=== PATIENT | male | born 1935 | race Caucasian/White ===

== ENCOUNTER 2017-02-08 11:10 | Inpatient (IN) | payer BC, MEDICARE ==
[2017-02-08] MEDS ORDERED: ACETAMINOPHEN TAB 500 MG TAB PO STA (11:28)
[2017-02-08] MEDS ORDERED: IBUPROFEN 800 MG TAB PO STA (11:28)
[2017-02-08] MEDS ORDERED: SODIUM CHLORIDE 0.9% 1,000 ML IV STA (11:28)
[2017-02-08] MEDS ORDERED: SODIUM CHLORIDE 0.9% 500 ML IV STA (11:28)
[2017-02-08] MEDS ORDERED: IPRATROPIUM-ALBUTEROL 3 ML NEB INHALATION STA (11:28)
[2017-02-08] MEDS ORDERED: LEVOFLOXACIN 750MG-D5W PMX 750 MG in DEXTROSE/WATER 1 150ML.BAG IVPB STA (11:28)
[2017-02-08] MEDS ORDERED: ALBUTEROL NEBULIZED 2.5 MG/3 ML INHALATION STA (11:37)
[2017-02-08] MEDS ORDERED: IPRATROPIUM 0.5 MG/2.5 ML NEBU INHALATION STA (11:37)
[2017-02-08 12:36] LABS: Basophils % (A) 0 %; CH 32.3; Eosinophils % (A) 0 %; HCT 43.4 % (39.0-53.0); HDW 2.48; HGB 15.5 gm/dL (13.0-17.5); Large Platelets Flag Moderate; Luc # (Auto) 0.16; Luc % (Auto) 2; Lymphocytes # (A) 0.6 k/uL (1.0-4.8); Lymphocytes % (A) 7 %; MCHC 35.6 g/dL (31.0-37.0); MCV 92.6 fL (80.0-100.0); Mean Platelet Volume 10.8; Monocytes # (A) 0.7 k/uL (0-1.0); Monocytes % (A) 8 %; Neutrophils # (A) 7.1 k/uL (1.3-7.7); Neutrophils % (A) 83 %; RBC 4.69 m/uL (4.30-5.90); RDW 13.2 % (11.5-15.5); WBC 8.6 k/uL (3.8-10.6)
[2017-02-08 12:38] LABS: ALT 45 U/L (21-72); AST 44 U/L (17-59); Alkaline Phosphatase 73 U/L (38-126); Anion Gap 11 mmol/L; Blood Urea Nitrogen 19 mg/dL (9-20); Calcium 8.8 mg/dL (8.4-10.2); Carbon Dioxide 27 mmol/L (22-30); Chloride 96 mmol/L (98-107); Glucose 149 mg/dL (74-99); INR 1.3 (<1.2); Magnesium 1.3 mg/dL (1.6-2.3); Non-African American GFR(MDRD) >60 (>60 ml/min/1.73 sqM); Partial Thromboplastin Time 25.1 sec (22.0-30.0); Potassium 3.7 mmol/L (3.5-5.1); Prothrombin Time 12.6 sec (9.0-12.0); Sodium 134 mmol/L (137-145); Total Protein 6.9 g/dL (6.3-8.2)
--- NOTE | 2017-02-08 12:56 | ED ---
General Adult HPI - General Chief complaint: Shortness of Breath Stated complaint: corey Time Seen by Provider: 02/08/17 11:28 Source: patient, RN notes reviewed, old records reviewed Mode of arrival: ambulatory Limitations: no limitations - History of Present Illness Initial comments: This is an 81-year-old male to the ER today for evaluation of shortness of breath. Patient presents with shortness of breath worse with exertion. Patient has history of recent diagnosis of pneumonia. Patient was given shot of Avelox yesterday at his primary care doctor's office and his shortness of breath, fever, sweating and chills in progress. Patient feels worse today. Yesterday, increasingly weak. No travel history no sick contacts or recent hospitalizations. - Related Data Home Medications Medication Instructions Recorded Confirmed Aspirin EC [Ecotrin Low Dose] 81 mg PO DAILY 02/08/17 02/08/17 Atenolol 100 mg PO HS 02/08/17 02/08/17 Cyanocobalamin (Vitamin B-12) 1,000 mcg PO DAILY 02/08/17 02/08/17 [Vitamin B-12] Donepezil HCl [Aricept] 5 mg PO DAILY 02/08/17 02/08/17 Fluticasone Nasal [place] [Flonase 2 spr EA NOSTRIL DAILY 02/08/17 02/08/17 Nasal [place]] Furosemide [Lasix] 20 mg PO BID 02/08/17 02/08/17 Ibuprofen [Motrin] 200 - 400 mg PO Q6HR PRN 02/08/17 02/08/17 Isosorbide Mononitrate ER [Imdur] 30 mg PO DAILY 02/08/17 02/08/17 Lisinopril-Hctz 20-25 mg 1 tab PO DAILY 02/08/17 02/08/17 [Zestoretic 20-25] Moxifloxacin HCl [Avelox] 400 mg PO DAILY 02/08/17 02/08/17 Nitroglycerin Sl Tabs [Nitrostat] 0.4 mg SUBLINGUAL Q5M PRN 02/08/17 02/08/17 Omeprazole 20 mg PO DAILY 02/08/17 02/08/17 Potassium Chloride [Klor-Con 20] 20 meq PO DAILY 02/08/17 02/08/17 Simvastatin [Zocor] 40 mg PO HS 02/08/17 02/08/17 Tamsulosin HCl [Flomax] 0.4 mg PO BID 02/08/17 02/08/17 Ubidecarenone [Co Q-10] 100 mg PO DAILY 02/08/17 02/08/17 Allergies Allergy/AdvReac Type Severity Reaction Status Date / Time No Known Allergies Allergy Verified 02/08/17 11:50 Review of Systems ROS Statement: Those systems with pertinent positive or pertinent negative responses have been documented in the HPI. ROS Other: All systems not noted in ROS Statement are negative. Past Medical History Past Medical History: Hyperlipidemia, Hypertension Additional Past Medical History / Comment(s): chronic back pain History of Any Multi-Drug Resistant Organisms: None Reported Past Surgical History: Back Surgery Past Psychological History: No Psychological Hx Reported Smoking Status: Former smoker Past Alcohol Use History: None Reported Past Drug Use History: None Reported General Exam Limitations: no limitations General appearance: alert, in no apparent distress, anxious Head exam: Present: atraumatic, normocephalic, normal inspection Eye exam: Present: normal appearance, PERRL, EOMI. Absent: scleral icterus, conjunctival injection, periorbital swelling ENT exam: Present: normal exam, mucous membranes moist Neck exam: Present: normal inspection. Absent: tenderness, meningismus, lymphadenopathy Respiratory exam: Present: normal lung sounds bilaterally, rales, accessory muscle use, decreased breath sounds. Absent: respiratory distress, wheezes, rhonchi, stridor Cardiovascular Exam: Present: regular rate, normal rhythm, normal heart sounds. Absent: systolic murmur, diastolic murmur, rubs, gallop, clicks GI/Abdominal exam: Present: soft, normal bowel sounds. Absent: distended, tenderness, guarding, rebound, rigid Extremities exam: Present: normal inspection, full ROM, normal capillary refill. Absent: tenderness, pedal edema, joint swelling, calf tenderness Back exam: Present: normal inspection Neurological exam: Present: alert, oriented X3, CN II-XII intact Psychiatric exam: Present: normal affect, normal mood Skin exam: Present: warm, dry, intact, normal color. Absent: rash Course Vital Signs 02/08/17 02/08/17 02/08/17 11:18 11:53 11:54 Temperature 101.6 F H 100.2 F H Pulse Rate 78 71 72 Respiratory 24 20 18 Rate Blood Pressure 161/90 150/92 155/95 O2 Sat by Pulse 95 97 96 Oximetry 02/08/17 02/08/17 02/08/17 12:33 12:48 13:00 Temperature Pulse Rate 75 73 74 Respiratory 18 18 Rate Blood Pressure 154/70 O2 Sat by Pulse 99 Oximetry 02/08/17 02/08/17 02/08/17 13:09 13:17 13:26 Temperature 99.0 F Pulse Rate 87 77 Respiratory 20 Rate Blood Pressure 141/67 O2 Sat by Pulse 95 Oximetry 02/08/17 02/08/17 13:49 14:18 Temperature 98.9 F Pulse Rate 89 87 Respiratory 20 18 Rate Blood Pressure 145/78 159/83 O2 Sat by Pulse 95 97 Oximetry - Reevaluation(s) Reevaluation #1: 02/08/17 14:27 Blas family regarding symptoms. Diagnosis. Questions answered Reevaluation #2: 02/08/17 14:27 Symptoms improved with fever control Reevaluation #3: 02/08/17 14:28 Patient denies any chest pain at this time EKG Findings - EKG Comments: EKG Findings:: EKG shows sinus rhythm rate of 76, pO2 76, QRS 152, QTC 570 Medical Decision Making - Medical Decision Making 81 male the ER for evaluation of fever cough congestion not feeling well. Patient appears to have suffered subacute AK. CT T negative for PE. Patient was be admitted for IV antibiotics secondary to elevated fever, and treatment of nonsteady - Lab Data Result diagrams: 02/08/17 12:07 02/08/17 12:07 Lab Results 02/08/17 02/08/17 02/08/17 Range/Units 12:07 12:07 12:07 WBC 8.6 (3.8-10.6) k/uL RBC 4.69 (4.30-5.90) m/uL Hgb 15.5 (13.0-17.5) gm/dL Hct 43.4 (39.0-53.0) % MCV 92.6 (80.0-100.0) fL MCH 33.0 (25.0-35.0) pg MCHC 35.6 (31.0-37.0) g/dL RDW 13.2 (11.5-15.5) % Plt Count 104 L (150-450) k/uL Neutrophils % 83 % Lymphocytes % 7 % Monocytes % 8 % Eosinophils % 0 % Basophils % 0 % Neutrophils # 7.1 (1.3-7.7) k/uL Lymphocytes # 0.6 L (1.0-4.8) k/uL Monocytes # 0.7 (0-1.0) k/uL Eosinophils # 0.0 (0-0.7) k/uL Basophils # 0.0 (0-0.2) k/uL PT (9.0-12.0) sec INR (<1.2) APTT (22.0-30.0) sec D-Dimer (<0.60) mg/L FEU Sodium 134 L (137-145) mmol/L Potassium 3.7 (3.5-5.1) mmol/L Chloride 96 L (98-107) mmol/L Carbon Dioxide 27 (22-30) mmol/L Anion Gap 11 mmol/L BUN 19 (9-20) mg/dL Creatinine 1.06 (0.66-1.25) mg/dL Est GFR (MDRD) Af Amer >60 (>60 ml/min/1.73 sqM) Est GFR (MDRD) Non-Af >60 (>60 ml/min/1.73 sqM) Glucose 149 H (74-99) mg/dL Plasma Lactic Acid Eulogio (0.7-2.0) mmol/L Calcium 8.8 (8.4-10.2) mg/dL Magnesium 1.3 L (1.6-2.3) mg/dL Total Bilirubin 1.0 (0.2-1.3) mg/dL AST 44 (17-59) U/L ALT 45 (21-72) U/L Alkaline Phosphatase 73 (38-126) U/L Total Creatine Kinase 158 (55-170) U/L CK-MB (CK-2) 1.8 (0.0-2.4) ng/mL CK-MB (CK-2) Rel Index 1.1 Troponin I 0.289 H* (0.000-0.034) ng/mL NT-Pro-B Natriuret Pep pg/mL Total Protein 6.9 (6.3-8.2) g/dL Albumin 3.9 (3.5-5.0) g/dL 02/08/17 02/08/1717 Range/Units 12:07 12:07 12:07 WBC (3.8-10.6) k/uL RBC (4.30-5.90) m/uL Hgb (13.0-17.5) gm/dL Hct (39.0-53.0) % MCV (80.0-100.0) fL MCH (25.0-35.0) pg MCHC (31.0-37.0) g/dL RDW (11.5-15.5) % Plt Count (150-450) k/uL Neutrophils % % Lymphocytes % % Monocytes % % Eosinophils % % Basophils % % Neutrophils # (1.3-7.7) k/uL Lymphocytes # (1.0-4.8) k/uL Monocytes # (0-1.0) k/uL Eosinophils # (0-0.7) k/uL Basophils # (0-0.2) k/uL PT 12.6 H (9.0-12.0) sec INR 1.3 H (<1.2) APTT 25.1 (22.0-30.0) sec D-Dimer 2.31 H (<0.60) mg/L FEU Sodium (137-145) mmol/L Potassium (3.5-5.1) mmol/L Chloride (98-107) mmol/L Carbon Dioxide (22-30) mmol/L Anion Gap mmol/L BUN (9-20) mg/dL Creatinine (0.66-1.25) mg/dL Est GFR (MDRD) Af Amer (>60 ml/min/1.73 sqM) Est GFR (MDRD) Non-Af (>60 ml/min/1.73 sqM) Glucose (74-99) mg/dL Plasma Lactic Acid Eulogio 1.3 (0.7-2.0) mmol/L Calcium (8.4-10.2) mg/dL Magnesium (1.6-2.3) mg/dL Total Bilirubin (0.2-1.3) mg/dL AST (17-59) U/L ALT (21-72) U/L Alkaline Phosphatase (38-126) U/L Total Creatine Kinase (55-170) U/L CK-MB (CK-2) (0.0-2.4) ng/mL CK-MB (CK-2) Rel Index Troponin I (0.000-0.034) ng/mL NT-Pro-B Natriuret Pep 10329 pg/mL Total Protein (6.3-8.2) g/dL Albumin (3.5-5.0) g/dL - Radiology Data Radiology results: report reviewed (Chest x-ray negative, CT negative for PE), image reviewed Critical Care Time Critical Care Time: Yes Total Critical Care Time: 31 Disposition Clinical Impression: Community acquired pneumonia, NSTEMI (non-ST elevated myocardial infarction), Fever Disposition: ADMITTED IP TO THIS HOSP Condition: Serious Referrals: Lily Nicole MD [Primary Care Provider] - 1-2 days
[2017-02-08 13:18] LABS: Creatine Kinase MB 1.8 ng/mL (0.0-2.4)
--- NOTE | 2017-02-08 13:26 | XR ---
EXAMINATION TYPE: XR chest 2V DATE OF EXAM: 02/08/2017 COMPARISON: Prior chest x-ray 02/24/2013 HISTORY: Difficulty breathing TECHNIQUE: Frontal and lateral views of the chest are obtained. FINDINGS: Prominent lung volumes suggest COPD. There are coronary artery calcifications, the aorta i s dense. Heart size may be accentuated by rotation. No pneumonia, pneumothorax, or pleural effusion. Pulmonary vascularity and eris are stable IMPRESSION: No acute cardiopulmonary process.
[2017-02-08] MEDS ORDERED: RX INFO: IV CONTRAST WAS GIVEN 1 EACH MISC MISCELLANE PRN (13:29)
[2017-02-08 13:40] LABS: Troponin I 0.289 ng/mL (0.000-0.034)
--- NOTE | 2017-02-08 14:19 | CT ---
EXAMINATION TYPE: CT angio chest DATE OF EXAM: 02/08/2017 2:13 PM COMPARISON: Previous study dated 02/26/2013 HISTORY: SOB, pneumonia CT DLP: 348.0 mGycm Automated exposure control for dose reduction was used. CONTRAST: CTA scan of the thorax is performed with IV Contrast, patient injected with 100 mL of Omnipaque 350, pulmonary embolism protocol. . FINDINGS: The lungs are clear. There is no significant axillary, mediastinal or hilar adenopathy. There is no evidence of pulmonary embolus. The aortic root is mildly prominent measuring 3.8 cm. The remainder the aorta is normal in caliber. T he heart is not enlarged. There is no pleural or pericardial fluid. There is diverticular change within the transverse colon. The remainder of the upper abdomen is unrem arkable. There is hypertrophic spondylosis within the spine. IMPRESSION: 1. THIS EXAMINATION IS NEGATIVE FOR PULMONARY EMBOLUS. 2. MILD DILATATION OF THE AORTIC ROOT. 3. DIVERTICULAR CHANGE INVOLVING THE TRANSVERSE COLON. 4. MILD DEGENERATIVE CHANGE WITHIN THE SPINE.
[2017-02-08] MEDS ORDERED: HEPARIN SODIUM,PORCINE 5,000 UNIT/ML 1 ML VIAL IV ONE (14:23)
[2017-02-08] MEDS ORDERED: MORPHINE SULFATE 4 MG/ML SYRINGE IV PRN (14:23)
[2017-02-08] MEDS ORDERED: HEPARIN SODIUM,PORCINE 5,000 UNIT/ML 1 ML VIAL IV PRN (14:23)
[2017-02-08] MEDS ORDERED: PNEUMONIA PROTOCOL UTILIZED 1 EACH MISC PO PRN (14:23)
[2017-02-08] MEDS ORDERED: ASPIRIN 81 MG CHEW PO STA (14:23)
[2017-02-08] MEDS ORDERED: NITROGLYCERIN SL TABS 0.4 MG TAB SUBLINGUAL PRN (14:23)
[2017-02-08] MEDS ORDERED: IPRATROPIUM-ALBUTEROL 3 ML NEB INHALATION PRN (14:23)
[2017-02-08] MEDS: MAGNESIUM SULFATE-D5W PMX 1 GM in DEXTROSE/WATER 1 100ML.BAG IVPB SCH ×2 (14:29→16:30)
[2017-02-08] MEDS ORDERED: SODIUM CHLORIDE 0.9% 1,000 ML IV SCH (14:30)
[2017-02-08] MEDS: HEPARIN SODIUM,PORCINE/D5W PMX 25,000 UNIT in DEXTROSE/WATER 1 500ML.BAG IV SCH (14:58)
[2017-02-08] MEDS ORDERED: Magnesium Replacement Protocol 1 EACH MISC MISCELLANE PRN (15:48)
[2017-02-08] MEDS ORDERED: ACETAMINOPHEN TAB 325 MG TAB PO PRN (15:48)
[2017-02-08] MEDS ORDERED: ONDANSETRON 4 MG/2 ML VIAL IVP PRN (15:48)
[2017-02-08] MEDS ORDERED: Potassium Replacement Protocol 1 EACH MISC MISCELLANE PRN (15:48)
[2017-02-08] MEDS ORDERED: FUROSEMIDE 20 MG TAB PO SCH (16:00)
[2017-02-08 16:23] LABS: Appearance,Urine Clear (Clear); Bilirubin,Urine Negative (Negative); Glucose,Urine (UA) Negative (Negative); Ketones,Urine Negative (Negative); Leukocyte Esterase,Urine Negative (Negative); Nitrite,Urine Negative (Negative); Protein,Urine Trace (Negative); Specific Gravity,Urine 1.037 (1.001-1.035); UA Billing (MACRO vs. MICRO) CHEM; Urobilinogen,Urine <2.0 mg/dL (<2.0)
--- NOTE | 2017-02-08 16:27 | P.HPIM ---
History of Present Illness H&P Date: 02/08/17 Chief Complaint: Shortness of breath This is a 81-year-old gentleman with past medical history noted below significant for essential hypertension and hyperlipidemia who presented to the emergency room with worsening shortness of breath. Patient said that his symptoms started few weeks ago and is being going on and off. He said that he get short of breath with exertion and at times he get up in the middle of the night to open the window to catch his breath. He denies any chest pain. He said that he is fairly active usually and play golf was no difficulty. Yesterday he was more short of breath and he went to his primary care physician where he was evaluated and was diagnosed with pneumonia clinically without a chest x-ray. He was given a prescription for Avelox. Unfortunately patient did not improve and shortness of breath got worse so he decided to come to the emergency room for further evaluation. In the emergency room, chest x-ray showed no acute findings. Patient was noted to be hypoxic. 12-lead EKG showed right bundle branch block. No prior EKGs available for me to compare. Initial troponin was elevated. A 12-lead EKG showed no acute ischemic changes. His BNP was significantly elevated as well. Patient appeared euvolemic clinically. Computed tomography scan of the chest obtained to rule out PE given elevated d-dimer the computed tomography scan showed clear lungs with no consolidation or infiltrate. Study was negative for PE. Of note, patient was noted to have high-grade fever in the emergency room of 101.5. He was started on IV Levaquin. No obvious source of infection. UA ordered and pending. Review of Systems Review of system: 14 points review of systems were obtained and were negative except to what were mentioned in the HPI. Past Medical History Past Medical History: Hyperlipidemia, Hypertension Additional Past Medical History / Comment(s): chronic back pain History of Any Multi-Drug Resistant Organisms: None Reported Past Surgical History: Back Surgery Past Psychological History: No Psychological Hx Reported Smoking Status: Former smoker Past Alcohol Use History: None Reported Past Drug Use History: None Reported Medications and Allergies Home Medications Medication Instructions Recorded Confirmed Type Aspirin EC [Ecotrin Low Dose] 81 mg PO DAILY 02/08/17 02/08/17 History Atenolol 100 mg PO HS 02/08/17 02/08/17 History Cyanocobalamin (Vitamin B-12) 1,000 mcg PO DAILY 02/08/17 02/08/17 History [Vitamin B-12] Donepezil HCl [Aricept] 5 mg PO DAILY 02/08/17 02/08/17 History Fluticasone Nasal [place] [Flonase 2 spr EA NOSTRIL DAILY 02/08/17 02/08/17 History Nasal [place]] Furosemide [Lasix] 20 mg PO BID 02/08/17 02/08/17 History Ibuprofen [Motrin] 200 - 400 mg PO Q6HR PRN 02/08/17 02/08/17 History Isosorbide Mononitrate ER [Imdur] 30 mg PO DAILY 02/08/17 02/08/17 History Lisinopril-Hctz 20-25 mg 1 tab PO DAILY 02/08/17 02/08/17 History [Zestoretic 20-25] Moxifloxacin HCl [Avelox] 400 mg PO DAILY 02/08/17 02/08/17 History Nitroglycerin Sl Tabs [Nitrostat] 0.4 mg SUBLINGUAL Q5M PRN 02/08/17 02/08/17 History Omeprazole 20 mg PO DAILY 02/08/17 02/08/17 History Potassium Chloride [Klor-Con 20] 20 meq PO DAILY 02/08/17 02/08/17 History Simvastatin [Zocor] 40 mg PO HS 02/08/17 02/08/17 History Tamsulosin HCl [Flomax] 0.4 mg PO BID 02/08/17 02/08/17 History Ubidecarenone [Co Q-10] 100 mg PO DAILY 02/08/17 02/08/17 History Allergies Allergy/AdvReac Type Severity Reaction Status Date / Time No Known Allergies Allergy Verified 02/08/17 11:50 Physical Exam Vitals: Vital Signs Temp Pulse Resp BP Pulse Ox 02/08/17 15:49 20 02/08/17 14:59 77 18 148/78 95 02/08/17 14:18 98.9 F 87 18 159/83 97 02/08/17 13:49 89 20 145/78 95 02/08/17 13:26 99.0 F 02/08/17 13:17 77 02/08/17 13:09 87 20 141/67 95 02/08/17 13:00 74 18 154/70 99 02/08/17 12:48 73 02/08/17 12:33 75 18 02/08/17 11:54 100.2 F H 72 18 155/95 96 02/08/17 11:53 71 20 150/92 97 02/08/17 11:18 101.6 F H 78 24 161/90 95 Intake and Output 02/08/17 02/08/17 02/08/17 06:59 14:59 22:59 Other: Weight 77.111 kg Patient Weight 02/09/17 06:59 Weight 77.111 kg General: The patient is awake and alert, in no distress, and does not appear acutely ill. Eye: extra-ocular movements are intact; there is normal conjunctiva bilaterally. . Neck: The neck is supple, there is no tenderness or JVD. Cardiovascular: Normal S1-S2, no S3-S4, no murmurs. Respiratory: Lungs clear to auscultation bilaterally with mild bibasilar crackles Gastrointestinal: Abdomen is soft, nontender, nondistended, with no organomegaly. Musculoskeletal: Normal ROM, no tenderness, There is no pedal edema. Neurological: There are no obvious motor or sensory deficits. Speech is normal. Skin: Skin is warm and dry and no rashes or lesions are noted. Results CBC & Chem 7: 02/08/17 12:07 02/08/17 12:07 Labs: Abnormal Lab Results - Last 24 Hours (Table) 02/08/17 02/08/17 02/08/17 Range/Units 12:07 12:07 12:07 Plt Count 104 L (150-450) k/uL Lymphocytes # 0.6 L (1.0-4.8) k/uL PT (9.0-12.0) sec INR (<1.2) D-Dimer (<0.60) mg/L FEU Sodium 134 L (137-145) mmol/L Chloride 96 L (98-107) mmol/L Glucose 149 H (74-99) mg/dL Magnesium 1.3 L (1.6-2.3) mg/dL Troponin I 0.289 H* (0.000-0.034) ng/mL 02/08/17 Range/Units 12:07 Plt Count (150-450) k/uL Lymphocytes # (1.0-4.8) k/uL PT 12.6 H (9.0-12.0) sec INR 1.3 H (<1.2) D-Dimer 2.31 H (<0.60) mg/L FEU Sodium (137-145) mmol/L Chloride (98-107) mmol/L Glucose (74-99) mg/dL Magnesium (1.6-2.3) mg/dL Troponin I (0.000-0.034) ng/mL Assessment and Plan Plan: 1. Acute dyspnea: Exact etiology unclear. I suspect underlying heart failure given her clinical presentation and significantly elevated BNP. I would start the patient on IV Lasix 40 mg every 8 hours and monitor electrolytes and kidney function closely. Echocardiogram ordered to rule out congestive heart failure and pulmonary hypertension. 2. Systemic inflammatory response syndrome SIRS: No obvious source of infection. Patient was diagnosed with pneumonia clinically by his PCP that his computed tomography scan of the chest showed clear lungs with no evidence of infiltrate. I would continue IV Levaquin for now. Blood culture and urinalysis ordered 3. Elevated troponin: No acute ischemic changes on 12-lead EKG. patient is currently on IV heparin awaiting cardiology evaluation. My suspicion for acute coronary syndrome is low. I think that this is non-thrombotic troponin leak in setting of heart failure. We will treat with optimal medical management awaiting cardiology evaluation. 4. Acute hypoxic respiratory failure 5. Essential hypertension: Blood pressure well controlled 6. Mixed hyperlipidemia: I would check fasting lipid profile in the morning Today, I discussed with the patient and his family at bedside his current clinical condition. I answered all their questions to their satisfaction.
[2017-02-08] MEDS: FUROSEMIDE 10 MG/ML 4 ML VIAL IV SCH ×2 (17:02→23:41)
[2017-02-08 18:50] LABS: Creatine Kinase MB 2.4 ng/mL (0.0-2.4)
[2017-02-08 18:55] LABS: Troponin I 0.197 ng/mL (0.000-0.034)
[2017-02-08] MEDS: ATORVASTATIN 80 MG TAB PO SCH (20:58)
[2017-02-08] MEDS: TAMSULOSIN 0.4 MG CAP.ER.24H PO SCH (20:58)
[2017-02-08] MEDS: ATENOLOL 50 MG TAB PO SCH (20:58)
[2017-02-08] MEDS ORDERED: ATORVASTATIN 20 MG TAB PO SCH (21:00)
[2017-02-08 21:23] VITALS: BMI 26.0
[2017-02-09 01:31] LABS: Creatine Kinase MB 3.8 ng/mL (0.0-2.4); Troponin I 0.245 ng/mL (0.000-0.034)
[2017-02-09] MEDS ORDERED: NITROGLYCERIN SL TABS 0.4 MG TAB SUBLINGUAL PRN (02:30)
[2017-02-09 06:16] LABS: Basophils % (A) 0 %; CH 32.3; CHCM 34.2; Eosinophils % (A) 0 %; HCT 42.3 % (39.0-53.0); HDW 2.54; HGB 14.4 gm/dL (13.0-17.5); Large Platelets Flag Slight; Luc # (Auto) 0.19; Luc % (Auto) 3; Lymphocytes # (A) 0.6 k/uL (1.0-4.8); Lymphocytes % (A) 9 %; MCH 32.4 pg (25.0-35.0); MCHC 34.2 g/dL (31.0-37.0); MCV 94.7 fL (80.0-100.0); Mean Platelet Volume 10.2; Monocytes # (A) 0.6 k/uL (0-1.0); Monocytes % (A) 9 %; Neutrophils # (A) 5.1 k/uL (1.3-7.7); Neutrophils % (A) 79 %; RBC 4.46 m/uL (4.30-5.90); RDW 12.6 % (11.5-15.5); WBC 6.5 k/uL (3.8-10.6); WBC (Perox) 7.04
[2017-02-09 06:31] LABS: Manual Review Performed
[2017-02-09] MEDS: PANTOPRAZOLE 40 MG TABLET PO SCH (06:43)
[2017-02-09 06:51] LABS: Anion Gap 12 mmol/L; Blood Urea Nitrogen 19 mg/dL (9-20); Calcium 8.2 mg/dL (8.4-10.2); Carbon Dioxide 27 mmol/L (22-30); Chloride 98 mmol/L (98-107); Cholesterol 112 mg/dL (<200); Glucose 118 mg/dL (74-99); HDL Cholesterol 48 mg/dL (40-60); Magnesium 1.4 mg/dL (1.6-2.3); Non-African American GFR(MDRD) >60 (>60 ml/min/1.73 sqM); Potassium 3.1 mmol/L (3.5-5.1); Sodium 137 mmol/L (137-145); Triglycerides 66 mg/dL (<150)
[2017-02-09] MEDS ORDERED: Magnesium Replacement Protocol 1 EACH MISC MISCELLANE PRN (07:46)
--- NOTE | 2017-02-09 08:52 | XR ---
EXAMINATION TYPE: XR chest 2V DATE OF EXAM: 02/09/2017 COMPARISON: Prior chest x-ray 02/08/2017 HISTORY: Pneumonia TECHNIQUE: Frontal and lateral views of the chest are obtained. FINDINGS: Prominent lung volumes suggest underlying COPD. No pneumothorax or pleural effusion. Cardi ac mediastinal silhouette, pulmonary vascularity and eris are stable accounting for rotation. There a re overlying cardiac leads. Interstitium is increased. IMPRESSION: Interstitial lung disease.
[2017-02-09] MEDS ORDERED: NON-FORMULARY DRUG (Moxifloxacin Hcl [Avelox] 400 MG) PO SCH (09:00)
[2017-02-09] MEDS ORDERED: ASPIRIN 325 MG TAB PO SCH (09:00)
[2017-02-09] MEDS ORDERED: NON-FORMULARY DRUG (Ubidecarenone [Co Q-10] 100 MG) PO SCH (09:00)
[2017-02-09] MEDS ORDERED: LISINOPRIL-HCTZ 20-25 MG 1 EACH TAB PO SCH (09:00)
[2017-02-09] MEDS: MAGNESIUM SULFATE-D5W PMX 1 GM in DEXTROSE/WATER 1 100ML.BAG IVPB SCH ×3 (09:03→13:10)
[2017-02-09] MEDS: POTASSIUM CHLORIDE ER 20 MEQ TAB.ER PO SCH ×5 (09:04→15:04)
--- NOTE | 2017-02-09 10:35 | P.CRDCN ---
History of Present Illness Consult date: 02/09/17 Requesting physician: Merry Rose Consult reason: shortness of breath Chief complaint: Shortness of breath History of present illness: This is a pleasant 81-year-old gentleman with history of hypertension , hyperlipidemia, coronary artery disease by heart cath performed a few years ago, patient was told to have a 70% blockage in one of his arteries at that time and was treated medically. Apparently the patient was golfing on Monday, he states on driving home he became quite short of breath. He was seen in his primary care doctor's office that same day and was felt to have a possible bronchitis or pneumonia, he was given a shot of Avelox and discharged with prescription for antibiotics. He states he did not sleep well that night and upon wakening in the morning again became quite short of breath and for this reason came to the emergency room for further evaluation. Patient states he is quite active, and does a lot of yard work, for the past one month or so, he has to rest every 10 minutes after exerting himself because he becomes quite short of breath, after he rests the symptoms subside and he resumes his activity. He does state that on the drive [place] from [place] as well as shortness of breath he was experiencing some discomfort in his chest and upper back region. His EKG on admission here showed a normal sinus rhythm with first-degree AV block, right bundle branch block pattern and left anterior fascicular block. Nonspecific ST-T wave changes noted. Chest x-ray did not reveal any acute cardiopulmonary process. CTA of the chest was performed which was negative for pulmonary embolism, mild dilated dictation of the aortic root noted. White blood cell count normal, hemoglobin 14.4, d-dimer 2.3, potassium 3.7 on admission, 3.1 this morning. BUN 19, creatinine 1.0. Magnesium level I.3 on admission, 1.4 this morning. Troponin 0.28, 0.19, 0.24. BNP level 16,200. Blood pressure on arrival 160/90, temperature on arrival 101.6, blood pressure this morning 165/80, heart rate in the 80s, temperature 99.0. Repeat chest x- ray this morning showed interstitial lung disease. Past Medical History Past Medical History: Hyperlipidemia, Hypertension Additional Past Medical History / Comment(s): chronic back pain due to back surgery. Increasing edema of the lower extremity, pt taking lasix for it. History of Any Multi-Drug Resistant Organisms: None Reported Past Surgical History: Back Surgery Past Anesthesia/Blood Transfusion Reactions: No Reported Reaction Past Psychological History: No Psychological Hx Reported Smoking Status: Former smoker Past Alcohol Use History: None Reported Past Drug Use History: None Reported - Past Family History Mother History Unknown: Yes Father History Unknown: Yes Medications and Allergies Home Medications Medication Instructions Recorded Confirmed Type Aspirin EC [Ecotrin Low Dose] 81 mg PO DAILY 02/08/17 02/08/17 History Atenolol 100 mg PO HS 02/08/17 02/08/17 History Cyanocobalamin (Vitamin B-12) 1,000 mcg PO DAILY 02/08/17 02/08/17 History [Vitamin B-12] Donepezil HCl [Aricept] 5 mg PO DAILY 02/08/17 02/08/17 History Fluticasone Nasal [place] [Flonase 2 spr EA NOSTRIL DAILY 02/08/17 02/08/17 History Nasal [place]] Furosemide [Lasix] 20 mg PO DAILY 02/08/17 02/08/17 History Ibuprofen [Motrin] 200 - 400 mg PO Q6HR PRN 02/08/17 02/08/17 History Isosorbide Mononitrate ER [Imdur] 30 mg PO DAILY 02/08/17 02/08/17 History Lisinopril-Hctz 20-25 mg 1 tab PO DAILY 02/08/17 02/08/17 History [Zestoretic 20-25] Moxifloxacin HCl [Avelox] 400 mg PO DAILY 02/08/17 02/08/17 History Nitroglycerin Sl Tabs [Nitrostat] 0.4 mg SUBLINGUAL Q5M PRN 02/08/17 02/08/17 History Omeprazole 20 mg PO DAILY 02/08/17 02/08/17 History Potassium Chloride [Klor-Con 20] 20 meq PO DAILY 02/08/17 02/08/17 History Simvastatin [Zocor] 40 mg PO HS 02/08/17 02/08/17 History Tamsulosin HCl [Flomax] 2 cap PO HS 02/08/17 02/08/17 History Ubidecarenone [Co Q-10] 100 mg PO DAILY 02/08/17 02/08/17 History Allergies Allergy/AdvReac Type Severity Reaction Status Date / Time No Known Allergies Allergy Verified 02/08/17 11:50 Physical Exam Vitals: Vital Signs Temp Pulse Pulse Resp BP BP BP 02/09/17 09:00 99 F 83 16 165/88 02/09/17 04:00 97.3 F L 67 16 156/86 02/09/17 00:00 96.8 F L 66 18 138/87 02/08/17 18:25 97.3 F L 81 17 147/86 02/08/17 18:22 96.8 F L 82 17 164/98 02/08/17 16:29 97.7 F 82 16 113/64 02/08/17 15:49 20 02/08/17 14:59 77 18 148/78 02/08/17 14:18 98.9 F 87 18 159/83 02/08/17 13:49 89 20 145/78 02/08/17 13:26 99.0 F 02/08/17 13:17 77 02/08/17 13:09 87 20 141/67 02/08/17 13:00 74 18 154/70 02/08/17 12:48 73 02/08/17 12:33 75 18 02/08/17 11:54 100.2 F H 72 18 155/95 02/08/17 11:53 71 20 150/92 02/08/17 11:18 101.6 F H 78 24 161/90 Pulse Ox 02/09/17 09:00 93 L 02/09/17 04:00 94 L 02/09/17 00:00 94 L 02/08/17 18:25 98 02/08/17 18:22 96 02/08/17 16:29 95 02/08/17 15:49 02/08/17 14:59 95 02/08/17 14:18 97 02/08/17 13:49 95 02/08/17 13:26 02/08/17 13:17 02/08/17 13:09 95 02/08/17 13:00 99 02/08/17 12:48 02/08/17 12:33 02/08/17 11:54 96 02/08/17 11:53 97 02/08/17 11:18 95 Intake and Output 02/08/17 02/09/1702/09/17 22:59 06:59 14:59 Intake Total 620.721 0727 Output Total 200 1600 Balance -60.017 -452 Intake: Intake, IV Titration 286.543 9017 Amount Heparin Sodium,Porcine/ 139.983 148 D5w Pmx 25,000 unit In Dextrose/Water 1 500ml. bag @ 12 UNITS/KG/HR 18.5 mls/hr IV .Q24H [facility] Rx#: [id number] Sodium Chloride 0.9% 1, 1000 000 ml @ 100 mls/hr IV . Q10H [facility] Rx#:[id number] Output: Urine 200 1600 Other: Voiding Method Toilet Urinal # Voids 1 Weight 77.7 kg 74 kg PHYSICAL EXAMINATION: HEENT: Head is atraumatic, normocephalic. Pupils equal, round. Neck is supple. There is elevated jugular venous pressure. HEART EXAMINATION: Heart S1 and S2 systolic murmur is heard. CHEST EXAMINATION: Lungs reveal diminished air entry bilaterally with crackles to the bases. ABDOMEN: Soft, nontender. Bowel sounds are heard. No organomegaly noted. EXTREMITIES: 2+ peripheral pulses with no evidence of peripheral edema and no calf tenderness noted. NEUROLOGIC [patient is awake, alert and oriented -3.] . Results 02/09/17 05:57 02/09/17 05:57 Cardiac Enzymes 02/08/17 02/08/17 02/08/17 Range/Units 12:07 12:07 18:11 AST 44 (17-59) U/L CK-MB (CK-2) 1.8 2.4 (0.0-2.4) ng/mL Troponin I 0.289 H* 0.197 H* (0.000-0.034) ng/mL 02/08/17 Range/Units 23:53 AST (17-59) U/L CK-MB (CK-2) 3.8 H* (0.0-2.4) ng/mL Troponin I 0.245 H* (0.000-0.034) ng/mL Coagulation 02/08/17 02/08/17 02/09/17 Range/Units 12:07 22:05 05:57 PT 12.6 H (9.0-12.0) sec APTT 25.1 57.3 H 34.5 H (22.0-30.0) sec Lipids 02/09/17 Range/Units 05:57 Triglycerides 66 (<150) mg/dL Cholesterol 112 (<200) mg/dL HDL Cholesterol 48 (40-60) mg/dL CBC 02/08/17 02/09/17 Range/Units 12:07 05:57 WBC 8.6 6.5 (3.8-10.6) k/uL RBC 4.69 4.46 (4.30-5.90) m/uL Hgb 15.5 14.4 (13.0-17.5) gm/dL Hct 43.4 42.3 (39.0-53.0) % Plt Count 104 L 81 L (150-450) k/uL Comprehensive Metabolic Panel 02/08/17 02/09/17 Range/Units 12:07 05:57 Sodium 134 L 137 (137-145) mmol/L Potassium 3.7 3.1 L (3.5-5.1) mmol/L Chloride 96 L 98 (98-107) mmol/L Carbon Dioxide 27 27 (22-30) mmol/L BUN 19 19 (9-20) mg/dL Creatinine 1.06 1.00 (0.66-1.25) mg/dL Glucose 149 H 118 H (74-99) mg/dL Calcium 8.8 8.2 L (8.4-10.2) mg/dL AST 44 (17-59) U/L ALT 45 (21-72) U/L Alkaline Phosphatase 73 (38-126) U/L Total Protein 6.9 (6.3-8.2) g/dL Albumin 3.9 (3.5-5.0) g/dL Current Medications Generic Name Dose Route Start Last Admin Trade Name Freq PRN Reason Stop Dose Admin Acetaminophen 650 mg 02/08/17 15:48 Tylenol Tab PO Q6HR PRN Fever and/ or Pain Albuterol/Ipratropium 3 ml 02/08/17 14:23 Duoneb 0.5 Mg-3 Mg/3 Ml Soln INHALATION RT-Q4H PRN shortness of breath Aspirin 325 mg 02/09/17 09:00 Aspirin PO DAILY [facility] Atenolol 100 mg 02/08/17 21:00 02/08/17 20:58 Tenormin PO 100 mg HS [facility] Administration Atorvastatin Calcium 80 mg 02/08/17 21:00 02/08/17 20:58 Lipitor PO 80 mg HS [facility] Administration Cyanocobalamin 1,000 mcg 02/09/17 09:00 Vitamin B-12 PO DAILY [facility] Donepezil HCl 5 mg 02/09/17 09:00 Aricept PO DAILY [facility] Fluticasone Propionate 2 spray 02/09/17 09:00 Flonase Nasal [place] EA NOSTRIL DAILY [facility] Furosemide 40 mg 02/08/17 16:30 02/08/17 23:41 Lasix IV 40 mg Q8HR [facility] Administration Lisinopril/HCTZ 1 each 02/09/17 09:00 Zestoretic 20-25 PO DAILY [facility] Heparin Sodium (Porcine) 0 unit 02/08/17 14:23 Heparin IV Q6HR PRN Low PTT Protocol Heparin Sodium/Dextrose 25,000 500 mls @ 18.5 mls/hr 02/08/17 14:30 02/09/17 06:32 unit/ IV Solution IV 15 units/kg/hr .Q24H [facility] 23.13 mls/hr Protocol Titration 12 UNITS/KG/HR Levofloxacin 750 mg/ IV 150 mls @ 100 mls/hr 02/09/17 12:00 Solution IVPB 02/21/17 12:01 Q24H [facility] Magnesium Sulfate/Dextrose 1 100 mls @ 100 mls/hr 02/09/17 08:00 02/09/17 09: 03 gm/ IV Solution IVPB 02/09/17 10:59 100 mls/hr Q1H [facility] Administration Isosorbide Mononitrate 30 mg 02/09/17 09:00 Imdur PO DAILY [facility] Miscellaneous Information 1 each 02/08/17 13:29 Rx Info: Iv Contrast Was Given MISCELLANE 02/10/17 13:29 DAILY PRN Per Protocol Miscellaneous Information 1 each 02/08/17 14:23 Pneumonia Protocol Utilized PO ONCE PRN Per Protocol Miscellaneous Information 1 each 02/08/17 15:48 Magnesium Per Protocol MISCELLANE DAILY PRN Per Protocol Protocol Miscellaneous Information 1 each 02/08/17 15:48 Potassium Per Protocol MISCELLANE DAILY PRN Per Protocol Protocol Miscellaneous Information 1 each 02/09/17 07:46 Magnesium Per Protocol MISCELLANE DAILY PRN Per Protocol Protocol Morphine Sulfate 4 mg 02/08/17 14:23 Morphine Sulfate (Inj) IV Q5M PRN Chest Pain Nitroglycerin 0.4 mg 02/08/17 14:23 Nitrostat SUBLINGUAL Q5M PRN Chest Pain Nitroglycerin 0.4 mg 02/09/17 02:30 Nitrostat SUBLINGUAL Q5M PRN Chest Pain Ondansetron HCl 4 mg 02/08/17 15:48 Zofran IVP Q6HR PRN Nausea And Vomiting Pantoprazole Sodium 40 mg 02/09/17 07:30 02/09/17 06:43 Protonix PO 40 mg [id number] [facility] Administration Potassium Chloride 20 meq 02/09/17 09:00 02/09/17 09:04 K-Dur 20 PO 20 meq DAILY [facility] Administration Tamsulosin HCl 0.4 mg 02/08/17 21:00 02/08/17 20:58 Flomax PO 0.4 mg BID [facility] Administration Intake and Output 02/08/17 02/09/17 02/09/17 22:59 06:59 14:59 Intake Total 537.269 3737 Output Total 200 1600 Balance -60.017 -452 Intake: Intake, IV Titration 570.003 4706 Amount Heparin Sodium,Porcine/ 139.983 148 D5w Pmx 25,000 unit In Dextrose/Water 1 500ml. bag @ 12 UNITS/KG/HR 18.5 mls/hr IV .Q24H [facility] Rx#: [id number] Sodium Chloride 0.9% 1, 1000 000 ml @ 100 mls/hr IV . Q10H [facility] Rx#:[id number] Output: Urine 200 1600 Other: Voiding Method Toilet Urinal # Voids 1 Weight 77.7 kg 74 kg 02/09/17 05:57 02/09/17 05:57 EKG Interpretations (text) EKG shows a normal sinus rhythm with first-degree AV block, right bundle branch block pattern and left anterior fascicular block. Assessment and Plan Plan: Assessment and plan #1 symptoms of exertional shortness of breath with associated chest and back discomfort, suggestive of unstable angina. Troponins 0.28, 0.19, 0.24. D- dimer elevated, no evidence of PE on CAT scan according to the patient's daughter, he did undergo cardiac catheterization a number of years ago which revealed 70% lesion in one of his arteries. Medical Therapy advised at that time. #2 possible pneumonia, evidence of temperature of 101 on admission, patient currently on IV antibiotics #3 congestive heart failure, unknown LV function at this time. Patient currently on IV Lasix. #4 hypertension #5 hyperlipidemia #6 hypomagnesemia Plan We will obtain an echocardiogram with Doppler study. Continue current dose of IV Lasix. Decrease aspirin 81 mg daily. Continue IV heparin. We will obtain records of patient's prior cardiac catheterization. Once the patient's pneumonia and heart failure clears, he will need to be evaluated for underlying coronary artery disease. Replace magnesium. Further recommendations to follow. DNP note has been reviewed, I agree with a documented findings and plan of care. Patient was seen and examined.
--- NOTE | 2017-02-09 11:23 | ECHOF ---
Referral Reason:CHF? NSTEMI MEASUREMENTS -------- HEIGHT: 172.7 cm WEIGHT: 73.9 kg BP: 156/86 RVIDd: 3.6 cm (< 3.3) IVSd: 1.2 cm (0.6 - 1.1) LVIDd: 5.4 cm (3.9 - 5.3) LVPWd: 1.4 cm (0.6 - 1.1) IVSs: 1.5 cm LVIDs: 4.4 cm LVPWs: 1.6 cm LA Diam: 4.1 cm (2.7 - 3.8) LAESV Index (A-L): 40.01 ml/m Ao Diam: 3.4 cm (2.0 - 3.7) AV Cusp: 2.0 cm (1.5 - 2.6) MV EXCURSION: 12.148 mm (> 18.000) MV EF SLOPE: 45 mm/s (70 - 150) EPSS: 1.6 cm RAP: 5.00 mmHg RVSP: 52.43 mmHg FINDINGS -------- Atrial fibrillation. This was a technically good study. The left ventricular size is normal. There is borderline concentric left ventricular hypertrophy. There is severe global hypokinesis of LV . Overall left ventricular systolic function is severely impaired with, an EF between 25 - 30 %. The right ventricle is mildly enlarged. LA is severely dilated >40 ml/m2 The right atrium is normal in size. Aortic valve is trileaflet and is mildly thickened. Mild mitral annular calcification present. Mild mitral regurgitation is present. Mild tricuspid regurgitation present. There is moderate pulmonary hypertension. The right ventricular systolic pressure, as measured by Doppler, is 52.43mmHg. Moderate pulmonic regurgitation. The aortic root size is normal. Normal inferior vena cava with normal inspiratory collapse consistent with estimated right atrial pressure of 5 mmHg. There is no pericardial effusion. CONCLUSIONS -------- 1. Atrial fibrillation. 2. Mild mitral regurgitation is present. 3. Mild tricuspid regurgitation present. 4. There is moderate pulmonary hypertension. 5. The right ventricular systolic pressure, as measured by Doppler, is 52.43mmHg. 6. Moderate pulmonic regurgitation. 7. The aortic root size is normal. 8. Normal inferior vena cava with normal inspiratory collapse consistent with estimated right atrial pressure of 5 mmHg. 9. There is no pericardial effusion. 10. This was a technically good study. 11. The left ventricular size is normal. 12. There is borderline concentric left ventricular hypertrophy. 13. There is severe global hypokinesis of LV . 14. The right ventricle is mildly enlarged. 15. LA is severely dilated >40 ml/m2 16. Aortic valve is trileaflet and is mildly thickened. 17. Mild mitral annular calcification present. TOBACCO DRYING MACHINE OPERATOR: Megan Jack RDCS
[2017-02-09] MEDS: FUROSEMIDE 10 MG/ML 4 ML VIAL IV SCH ×3 (11:30→23:11)
[2017-02-09] MEDS: CYANOCOBALAMIN 500 MCG TAB PO SCH (11:31)
[2017-02-09] MEDS: ISOSORBIDE MONONITRATE ER 30 MG TAB.ER.24H PO SCH (11:31)
[2017-02-09] MEDS: TAMSULOSIN 0.4 MG CAP.ER.24H PO SCH ×2 (11:31→20:33)
[2017-02-09] MEDS: DONEPEZIL 5 MG TAB PO SCH (11:31)
--- NOTE | 2017-02-09 12:00 | P.PN ---
Subjective Patient is doing slightly better today. Objective - Vital Signs Vital signs: Vital Signs Temp 99 F 02/09/17 09:00 Pulse 83 02/09/17 11:20 Resp 16 02/09/17 11:20 BP 142/76 02/09/17 11:20 Pulse Ox 95 02/09/17 11:20 Intake & Output 02/08/17 02/09/17 02/09/17 18:59 06:59 18:59 Intake Total 1287.983 Output Total 1800 Balance -512.017 Weight 77.7 kg 74 kg Intake: Intake, IV Titration 1287.983 Amount Heparin Sodium,Porcine/ 287.983 D5w Pmx 25,000 unit In Dextrose/Water 1 500ml. bag @ 12 UNITS/KG/HR 18.5 mls/hr IV .Q24H [facility] Rx#: [id number] Sodium Chloride 0.9% 1, 1000 000 ml @ 100 mls/hr IV . Q10H [facility] Rx#:[id number] Output: Urine 1800 Other: Voiding Method Toilet Toilet Urinal Urinal # Voids 1 - Exam General: The patient is awake and alert, in no distress Eye: there is normal conjunctiva bilaterally. Neck: The neck is supple, there is no JVD. Cardiovascular: Normal S1-S2, no S3-S4, no murmurs. Respiratory: Lungs clear to auscultation bilaterally Gastrointestinal: Abdomen is soft, nontender Musculoskeletal: There is no pedal edema. Neurological:. Speech is normal. Skin: Skin is warm and dry - Labs CBC & Chem 7: 02/09/17 05:57 02/09/17 05:57 Labs: Abnormal Lab Results - Last 24 Hours (Table) 02/08/17 02/08/17 02/08/17 Range/Units 12:07 12:07 12:07 Plt Count 104 L (150-450) k/uL Lymphocytes # 0.6 L (1.0-4.8) k/uL PT (9.0-12.0) sec INR (<1.2) APTT (22.0-30.0) sec D-Dimer (<0.60) mg/L FEU Sodium 134 L (137-145) mmol/L Potassium (3.5-5.1) mmol/L Chloride 96 L (98-107) mmol/L Glucose 149 H (74-99) mg/dL Calcium (8.4-10.2) mg/dL Magnesium 1.3 L (1.6-2.3) mg/dL CK-MB (CK-2) (0.0-2.4) ng/mL Troponin I 0.289 H* (0.000-0.034) ng/mL Ur Specific [place] (1.001-1.035) Urine Protein (Negative) 02/08/17 02/08/17 02/08/17 Range/Units 12:07 16:06 18:11 Plt Count (150-450) k/uL Lymphocytes # (1.0-4.8) k/uL PT 12.6 H (9.0-12.0) sec INR 1.3 H (<1.2) APTT (22.0-30.0) sec D-Dimer 2.31 H (<0.60) mg/L FEU Sodium (137-145) mmol/L Potassium (3.5-5.1) mmol/L Chloride (98-107) mmol/L Glucose (74-99) mg/dL Calcium (8.4-10.2) mg/dL Magnesium (1.6-2.3) mg/dL CK-MB (CK-2) (0.0-2.4) ng/mL Troponin I 0.197 H* (0.000-0.034) ng/mL Ur Specific [place] 1.037 H (1.001-1.035) Urine Protein Trace H (Negative) 02/08/17 02/08/17 02/09/17 Range/Units 22:05 23:53 05:57 Plt Count 81 L (150-450) k/uL Lymphocytes # 0.6 L (1.0-4.8) k/uL PT (9.0-12.0) sec INR (<1.2) APTT 57.3 H (22.0-30.0) sec D-Dimer (<0.60) mg/L FEU Sodium (137-145) mmol/L Potassium (3.5-5.1) mmol/L Chloride (98-107) mmol/L Glucose (74-99) mg/dL Calcium (8.4-10.2) mg/dL Magnesium (1.6-2.3) mg/dL CK-MB (CK-2) 3.8 H* (0.0-2.4) ng/mL Troponin I 0.245 H* (0.000-0.034) ng/mL Ur Specific [place] (1.001-1.035) Urine Protein (Negative) 02/09/17 02/09/17 Range/Units 05:57 05:57 Plt Count (150-450) k/uL Lymphocytes # (1.0-4.8) k/uL PT (9.0-12.0) sec INR (<1.2) APTT 34.5 H (22.0-30.0) sec D-Dimer (<0.60) mg/L FEU Sodium (137-145) mmol/L Potassium 3.1 L (3.5-5.1) mmol/L Chloride (98-107) mmol/L Glucose 118 H (74-99) mg/dL Calcium 8.2 L (8.4-10.2) mg/dL Magnesium 1.4 L (1.6-2.3) mg/dL CK-MB (CK-2) (0.0-2.4) ng/mL Troponin I (0.000-0.034) ng/mL Ur Specific [place] (1.001-1.035) Urine Protein (Negative) Assessment and Plan Plan: 1. Acute systolic heart failure exacerbation: echocardiogram showed EF of 25%. We will continue diuresis with IV Lasix 40 mg every 8 hours. Monitor lab work closely. May decrease dose to 40 mg daily tomorrow 2. Systemic inflammatory response syndrome SIRS: No obvious source of infection. Patient was diagnosed with pneumonia clinically by his PCP that his computed tomography scan of the chest showed clear lungs with no evidence of infiltrate. I recommend finishing 5 days course of Levaquin. Blood culture and urinalysis negative 3. Ischemic cardiomyopathy 4. Acute hypoxic respiratory failure 5. Essential hypertension: Blood pressure not well controlled 6. Mixed hyperlipidemia: LDL at goal. Continue home dose of statins. 7. Coronary artery disease with recent left heart catheterization several years ago. Patient will need a repeat left heart cath after finishing treatment for suspected bronchitis and his heart failure is better compensated. Today, I discussed with the patient and his family at bedside his current clinical condition. I answered all their questions to their satisfaction.
[2017-02-09] MEDS: HEPARIN SODIUM,PORCINE/D5W PMX 25,000 UNIT in DEXTROSE/WATER 1 500ML.BAG IV SCH (13:10)
[2017-02-09] MEDS: FLUTICASONE 50MCG/SPRAY NASAL 16GM EA NOSTRIL SCH (13:10)
[2017-02-09] MEDS: LEVOFLOXACIN 750MG-D5W PMX 750 MG in DEXTROSE/WATER 1 150ML.BAG IVPB SCH (13:10)
[2017-02-09] MEDS: SPIRONOLACTONE 25 MG TAB PO SCH (15:04)
[2017-02-09] MEDS ORDERED: POTASSIUM CHLORIDE ER 20 MEQ TAB.ER PO SCH (20:00)
[2017-02-09] MEDS: ATENOLOL 50 MG TAB PO SCH (20:32)
[2017-02-09] MEDS: LOSARTAN 50 MG TAB PO SCH (20:33)
[2017-02-09] MEDS: ATORVASTATIN 80 MG TAB PO SCH (20:33)
[2017-02-09] MEDS ORDERED: LORazepam 2 MG/ML SYRINGE IV PRN (22:33)
--- NOTE | 2017-02-09 23:28 | CT ---
EXAM: CT Head Without Intravenous Contrast CLINICAL HISTORY: Reason: Altered mental status TECHNIQUE: Axial computed tomography images of the head/brain without intravenous contrast. CTDI is 60.3 mGy and DLP is 1001.8 mGy-cm. This CT exam was performed using one or more of the following dose reduction techniques: automated exposure control, adjustment of the mA and/or kV according to patient size, and/or use of iterative reconstruction technique. COMPARISON: MRI brain 07/05/2016. FINDINGS: Brain: Severe white matter hypoattenuation, nonspecific and may be related to chronic microvascular ischemic change. Moderate cerebral volume loss. 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 No acute hemorrhage. Mass effect: No midline shift, herniation, or hydrocephalus. Bones/joints: Stable size of the 2.2 cm lesion in the right vertex skull. No acute fracture. Soft tissues: Unremarkable. Vasculature: Intracranial vascular calcifications. Sinuses: Mild mucosal thickening of the paranasal sinuses without air fluid level. Mastoid air cells: Unremarkable as visualized. No mastoid effusion. Orbits: Bilateral cataract extraction. IMPRESSION: 1. No acute intracranial abnormality. 2. Chronic findings, detailed above.
[2017-02-10 00:17] LABS: Appearance,Urine Clear (Clear); Bilirubin,Urine Negative (Negative); Glucose,Urine (UA) Negative (Negative); Ketones,Urine Negative (Negative); Leukocyte Esterase,Urine Negative (Negative); Nitrite,Urine Negative (Negative); Protein,Urine Negative (Negative); Specific Gravity,Urine 1.008 (1.001-1.035); UA Billing (MACRO vs. MICRO) CHEM; Urobilinogen,Urine <2.0 mg/dL (<2.0)
[2017-02-10] MEDS: PANTOPRAZOLE 40 MG TABLET PO SCH (06:24)
[2017-02-10 06:41] LABS: Aty Lym Flag Moderate; CH 32.9; CHCM 34.2; HDW 2.47; HGB 14.4 gm/dL (13.0-17.5); Large Platelets Flag Moderate; MCH 32.4 pg (25.0-35.0); MCHC 33.5 g/dL (31.0-37.0); MCV 96.7 fL (80.0-100.0); Mean Platelet Volume 11.9; RBC 4.45 m/uL (4.30-5.90); RDW 13.3 % (11.5-15.5); WBC 4.8 k/uL (3.8-10.6); WBC (Perox) 5.02
[2017-02-10 07:01] LABS: Anion Gap 11 mmol/L; Blood Urea Nitrogen 24 mg/dL (9-20); Calcium 8.7 mg/dL (8.4-10.2); Carbon Dioxide 29 mmol/L (22-30); Chloride 95 mmol/L (98-107); Glucose 139 mg/dL (74-99); Magnesium 1.7 mg/dL (1.6-2.3); Non-African American GFR(MDRD) >60 (>60 ml/min/1.73 sqM); Potassium 3.3 mmol/L (3.5-5.1); Sodium 135 mmol/L (137-145)
[2017-02-10 07:44] LABS: Add Differential Manual Differential
[2017-02-10 07:51] LABS: Manual Review Performed; Nucleated Red Blood Cells 0 /100 WBC (0-0); Total Cells Counted 200
[2017-02-10] MEDS: POTASSIUM CHLORIDE ER 20 MEQ TAB.ER PO SCH ×3 (08:14→10:11)
[2017-02-10] MEDS: CYANOCOBALAMIN 500 MCG TAB PO SCH (08:14)
[2017-02-10] MEDS: ASPIRIN 81 MG CHEW PO SCH (08:14)
[2017-02-10] MEDS: DONEPEZIL 5 MG TAB PO SCH (08:14)
[2017-02-10] MEDS: SPIRONOLACTONE 25 MG TAB PO SCH (08:14)
[2017-02-10] MEDS: TAMSULOSIN 0.4 MG CAP.ER.24H PO SCH ×2 (08:15→21:31)
[2017-02-10] MEDS: FUROSEMIDE 10 MG/ML 4 ML VIAL IV SCH ×2 (08:19→15:35)
[2017-02-10] MEDS: FLUTICASONE 50MCG/SPRAY NASAL 16GM EA NOSTRIL SCH (08:22)
[2017-02-10] MEDS: LOSARTAN 50 MG TAB PO SCH ×2 (08:24→21:31)
[2017-02-10] MEDS: MAGNESIUM SULFATE-D5W PMX 1 GM in DEXTROSE/WATER 1 100ML.BAG IVPB SCH ×2 (08:33→10:07)
--- NOTE | 2017-02-10 11:22 | P.PN ---
Subjective This is a 81-year-old gentleman with past medical history noted below significant for essential hypertension and hyperlipidemia who presented to the emergency room with worsening shortness of breath. Patient said that his symptoms started few weeks ago and is being going on and off. He said that he get short of breath with exertion and at times he get up in the middle of the night to open the window to catch his breath. He denies any chest pain. He said that he is fairly active usually and play golf was no difficulty. Yesterday he was more short of breath and he went to his primary care physician where he was evaluated and was diagnosed with pneumonia clinically without a chest x-ray. He was given a prescription for Avelox. Unfortunately patient did not improve and shortness of breath got worse so he decided to come to the emergency room for further evaluation. In the emergency room, chest x-ray showed no acute findings. Patient was noted to be hypoxic. 12-lead EKG showed right bundle branch block. No prior EKGs available for me to compare. Initial troponin was elevated. A 12-lead EKG showed no acute ischemic changes. His BNP was significantly elevated as well. Patient appeared euvolemic clinically. Computed tomography scan of the chest obtained to rule out PE given elevated d-dimer the computed tomography scan showed clear lungs with no consolidation or infiltrate. Study was negative for PE. He also had a temp of 101.5 started on IV Levaquin for possible pneumonia. 02/10/2017 patient is currently on IV Lasix for congestive heart failure exacerbation. EF of 25%. Echo shows moderate pulmonary hypertension and severe global hypokinesis of the LV. Also an EF of 25-30%. Case doesn't discussed with cardiology these are new findings. He is currently on IV heparin. He does report that he had some chest tightness with the shortness of breath. Last night patient had some confusion he wanted to leave the hospital he did not know where he was. A computed tomography scan of the brain was ordered and is negative. Patient is currently awake and alert and orientated to 3 answering questions appropriately. Patient denies any chest pain or shortness of breath. Denies any nausea or vomiting. Reports having bowel movements. Denies any difficulty urinating. Reports that shortness of breaths improvement Objective - Vital Signs Vital signs: Vital Signs Temp 98.5 F 02/10/17 08:00 Pulse 63 02/10/17 08:00 Resp 20 02/10/17 08:00 BP 146/82 02/10/17 08:00 Pulse Ox 96 02/10/17 08:00 Intake & Output 02/09/17 02/10/17 02/10/17 18:59 06:59 18:59 Intake Total 153.429 616.386 Output Total 525 Balance 153.429 91.386 Weight 74.1 kg Intake: Intake, IV Titration 153.429 436.386 Amount Heparin Sodium,Porcine/ 153.429 436.386 D5w Pmx 25,000 unit In Dextrose/Water 1 500ml. bag @ 12 UNITS/KG/HR 18.5 mls/hr IV .Q24H [facility] Rx#: [id number] Oral 0 180 Output: Urine 525 Other: Voiding Method Toilet Toilet Toilet Urinal Urinal # Voids 4 2 - Exam Head normocephalic Neck supple Lungs clear to auscultation bilaterally no wheezing or crackles Heart regular rate and rhythm S1-S2, no rub or gallop Abdomen is soft nontender nondistended positive bowel sounds no hepatosplenomegaly Extremities no edema Neuro alert and orientated to 3 - Labs CBC & Chem 7: 02/10/17 05:43 02/10/17 05:43 Labs: Abnormal Lab Results - Last 24 Hours (Table) 02/09/17 02/09/17 02/10/17 Range/Units 12:11 12:11 05:43 Plt Count 94 L (150-450) k/uL APTT 49.8 H (22.0-30.0) sec Sodium (137-145) mmol/L Potassium 3.2 L (3.5-5.1) mmol/L Chloride (98-107) mmol/L BUN (9-20) mg/dL Glucose (74-99) mg/dL 02/10/17 02/10/17 Range/Units 05:43 05:43 Plt Count (150-450) k/uL APTT 78.3 H (22.0-30.0) sec Sodium 135 L (137-145) mmol/L Potassium 3.3 L (3.5-5.1) mmol/L Chloride 95 L (98-107) mmol/L BUN 24 H (9-20) mg/dL Glucose 139 H (74-99) mg/dL Microbiology - Last 24 Hours (Table) 02/09/17 20:00 Urine Culture - Preliminary Urine,Voided 02/09/17 19:39 Gram Stain - Preliminary Sputum 02/08/17 12:07 Blood Culture - Preliminary Blood No Growth after 24 hours Assessment and Plan Plan: 1. Acute systolic heart failure exacerbation: echocardiogram showed EF of 25%. Currently on Lasix 40 IV every 8 hours 2. Systemic inflammatory response syndrome SIRS: Possible secondary to bronchitis. Patient was diagnosed with pneumonia clinically by his PCP that his computed tomography scan of the chest showed clear lungs with no evidence of infiltrate. I recommend finishing 5 days course of Levaquin. Blood culture and urinalysis negative. Sputum culture pending 3. Ischemic cardiomyopathy 4. Acute hypoxic respiratory failure 5. Essential hypertension: Blood pressure not well controlled 6. Mixed hyperlipidemia: LDL at goal. Continue home dose of statins. 7. Coronary artery disease with left heart catheterization several years ago. Patient will need a repeat left heart cath after finishing treatment for suspected bronchitis and his heart failure is better compensated. 8. hypomagnesium and hypokalemia. Patient receiving supplements. Repeat levels in a.m. 9. Shortness of breath with chest tightness and elevated troponins. Likely suggestive of unstable angina. Case discussed with cardiology. They're recommending heart catheterization when patient's heart failure and bronchitis has improved. Continue the IV heparin. 10. Consult physical therapy 11. Confusion during the evening may be secondary to patient's dementia as well as hospital delirium. Computed tomography scan of the brain negative. He is currently alert and orientated to 3 DVT prophylaxis IV heparin I performed an examination of the patient and discussed their management with the physician Sole Inker. I have reviewed the Physician Sole Inker's notes and agree with the documented findings and plan of care
[2017-02-10] MEDS: LEVOFLOXACIN 750MG-D5W PMX 750 MG in DEXTROSE/WATER 1 150ML.BAG IVPB SCH (11:54)
[2017-02-10] MEDS: HEPARIN SODIUM,PORCINE/D5W PMX 25,000 UNIT in DEXTROSE/WATER 1 500ML.BAG IV SCH (11:55)
[2017-02-10] MEDS: ISOSORBIDE MONONITRATE ER 30 MG TAB.ER.24H PO SCH (11:55)
[2017-02-10] MEDS ORDERED: POTASSIUM CHLORIDE ER 20 MEQ TAB.ER PO SCH (15:00)
--- NOTE | 2017-02-10 15:16 | P.PN ---
Subjective This is a pleasant 81-year-old gentleman with history of hypertension , hyperlipidemia, coronary artery disease by heart cath performed a few years ago, patient was told to have a 70% blockage in one of his arteries at that time and was treated medically. Apparently the patient was golfing on Monday, he states on driving home he became quite short of breath. He was seen in his primary care doctor's office that same day and was felt to have a possible bronchitis or pneumonia, he was given a shot of Avelox and discharged with prescription for antibiotics. He states he did not sleep well that night and upon wakening in the morning again became quite short of breath and for this reason came to the emergency room for further evaluation. Patient states he is quite active, and does a lot of yard work, for the past one month or so, he has to rest every 10 minutes after exerting himself because he becomes quite short of breath, after he rests the symptoms subside and he resumes his activity. He does state that on the drive home from the [place] as well as shortness of breath he was experiencing some discomfort in his chest and upper back region. His EKG on admission here showed a normal sinus rhythm with first-degree AV block, right bundle branch block pattern and left anterior fascicular block. Nonspecific ST-T wave changes noted. Chest x-ray did not reveal any acute cardiopulmonary process. CTA of the chest was performed which was negative for pulmonary embolism, mild dilated dictation of the aortic root noted. White blood cell count normal, hemoglobin 14.4, d-dimer 2.3, potassium 3.7 on admission, 3.1 this morning. BUN 19, creatinine 1.0. Magnesium level I.3 on admission, 1.4 this morning. Troponin 0.28, 0.19, 0.24. BNP level 16,200. Blood pressure on arrival 160/90, temperature on arrival 101.6, blood pressure this morning 165/80, heart rate in the 80s, temperature 99.0. Repeat chest x- ray this morning showed interstitial lung disease. 02/10/2017 Echocardiogram with Doppler study was performed which revealed an ejection fraction of 25-30%. Patient had an episode of confusion through the night last night. He does have some history of dementia for which he takes Aricept. CAT scan of the brain was performed which did not reveal any acute intracranial abnormality. Diuresing well on IV Lasix. Creatinine 1.1, potassium 3.8 magnesium 1.7 Objective - Vital Signs Vital signs: Vital Signs Temp 97.4 F L 02/10/17 11:49 Pulse 57 L 02/10/17 11:49 Resp 20 02/10/17 11:49 BP 141/86 02/10/17 11:49 Pulse Ox 94 L 02/10/17 11:49 Intake & Output 02/09/17 02/10/17 02/10/17 18:59 06:59 18:59 Intake Total 153.429 860.000 Output Total 1475 Balance 153.429 -615.000 Weight 74.1 kg Intake: Intake, IV Titration 153.429 500.000 Amount Heparin Sodium,Porcine/ 153.429 500.000 D5w Pmx 25,000 unit In Dextrose/Water 1 500ml. bag @ 12 UNITS/KG/HR 18.5 mls/hr IV .Q24H [facility] Rx#: [id number] Oral 0 360 Output: Urine 1475 Other: Voiding Method Toilet Toilet Toilet Urinal Urinal # Voids 4 2 - Exam PHYSICAL EXAMINATION: HEENT: Head is atraumatic, normocephalic. Pupils equal, round. Neck is supple. There is elevated jugular venous pressure. HEART EXAMINATION: Heart S1 and S2 systolic murmur is heard. CHEST EXAMINATION: Lungs reveal diminished air entry bilaterally with crackles to the bases. ABDOMEN: Soft, nontender. Bowel sounds are heard. No organomegaly noted. EXTREMITIES: 2+ peripheral pulses with no evidence of peripheral edema and no calf tenderness noted. NEUROLOGIC [patient is awake, alert and oriented -3.] . - Labs CBC & Chem 7: 02/10/17 05:43 02/10/17 13:05 Labs: Abnormal Lab Results - Last 24 Hours (Table) 02/10/17 02/10/17 02/10/17 Range/Units 05:43 05:43 05:43 Plt Count 94 L (150-450) k/uL APTT 78.3 H (22.0-30.0) sec Sodium 135 L (137-145) mmol/L Potassium 3.3 L (3.5-5.1) mmol/L Chloride 95 L (98-107) mmol/L BUN 24 H (9-20) mg/dL Glucose 139 H (74-99) mg/dL 02/10/17 Range/Units 13:05 Plt Count (150-450) k/uL APTT 63.8 H (22.0-30.0) sec Sodium (137-145) mmol/L Potassium (3.5-5.1) mmol/L Chloride (98-107) mmol/L BUN (9-20) mg/dL Glucose (74-99) mg/dL Microbiology - Last 24 Hours (Table) 02/08/17 12:07 Blood Culture - Preliminary Blood No Growth after 48 hours 02/09/17 20:00 Urine Culture - Preliminary Urine,Voided 02/09/17 19:39 Gram Stain - Preliminary Sputum Assessment and Plan Plan: Assessment and plan #1 symptoms of exertional shortness of breath with associated chest and back discomfort, suggestive of unstable angina. Troponins 0.28, 0.19, 0.24. D- dimer elevated, no evidence of PE on CAT scan according to the patient's daughter, he did undergo cardiac catheterization a number of years ago which revealed 70% lesion in one of his arteries. Medical Therapy advised at that time. #2 possible pneumonia, evidence of temperature of 101 on admission, patient currently on IV antibiotics #3 congestive heart failure, unknown LV function at this time. Patient currently on IV Lasix. #4 hypertension #5 hyperlipidemia #6 hypomagnesemia Plan We will obtain an echocardiogram with Doppler study. Continue current dose of IV Lasix. Check lytes BUN and creatinine in the morning. Once the patient is stable from a heart failure and pneumonia perspective he may be able to be discharged home and an outpatient cardiac catheterization will be performed. DNP note has been reviewed, I agree with a documented findings and plan of care. Patient was seen and examined.
[2017-02-10] MEDS: ATORVASTATIN 80 MG TAB PO SCH (21:31)
[2017-02-10] MEDS: ATENOLOL 50 MG TAB PO SCH (21:31)
[2017-02-10 21:53] VITALS: RESP 18
[2017-02-11] MEDS: FUROSEMIDE 10 MG/ML 4 ML VIAL IV SCH ×2 (00:23→09:25)
[2017-02-11 06:22] LABS: Aty Lym Flag Moderate; CH 32.6; CHCM 34.3; HCT 47.9 % (39.0-53.0); HDW 2.52; HGB 16.2 gm/dL (13.0-17.5); Large Platelets Flag Moderate; MCH 32.3 pg (25.0-35.0); MCHC 33.9 g/dL (31.0-37.0); MCV 95.3 fL (80.0-100.0); RBC 5.02 m/uL (4.30-5.90); RDW 12.5 % (11.5-15.5); WBC 6.2 k/uL (3.8-10.6); WBC (Perox) 6.41
[2017-02-11 06:39] LABS: Anion Gap 15 mmol/L; Blood Urea Nitrogen 26 mg/dL (9-20); Calcium 9.7 mg/dL (8.4-10.2); Carbon Dioxide 28 mmol/L (22-30); Chloride 92 mmol/L (98-107); Glucose 127 mg/dL (74-99); Magnesium 1.5 mg/dL (1.6-2.3); Non-African American GFR(MDRD) 56 (>60 ml/min/1.73 sqM); Sodium 135 mmol/L (137-145)
[2017-02-11 06:47] LABS: Add Differential Manual Differential
[2017-02-11] MEDS: PANTOPRAZOLE 40 MG TABLET PO SCH (06:53)
[2017-02-11 07:14] LABS: Nucleated Red Blood Cells 0 /100 WBC (0-0); Total Cells Counted 100
[2017-02-11 07:16] LABS: Manual Review Performed
[2017-02-11] MEDS: CYANOCOBALAMIN 500 MCG TAB PO SCH (09:25)
[2017-02-11] MEDS: ISOSORBIDE MONONITRATE ER 30 MG TAB.ER.24H PO SCH (09:25)
[2017-02-11] MEDS: FLUTICASONE 50MCG/SPRAY NASAL 16GM EA NOSTRIL SCH (09:25)
[2017-02-11] MEDS: SPIRONOLACTONE 25 MG TAB PO SCH (09:25)
[2017-02-11] MEDS: LOSARTAN 50 MG TAB PO SCH (09:26)
[2017-02-11] MEDS: TAMSULOSIN 0.4 MG CAP.ER.24H PO SCH (09:26)
[2017-02-11] MEDS: DONEPEZIL 5 MG TAB PO SCH (09:26)
[2017-02-11] MEDS: ASPIRIN 81 MG CHEW PO SCH (09:26)
[2017-02-11] MEDS: POTASSIUM CHLORIDE ER 20 MEQ TAB.ER PO SCH (09:26)
--- NOTE | 2017-02-11 11:48 | P.PN ---
Subjective This is a pleasant 81-year-old gentleman with history of hypertension , hyperlipidemia, coronary artery disease by heart cath performed a few years ago, patient was told to have a 70% blockage in one of his arteries at that time and was treated medically. Apparently the patient was golfing on Monday, he states on driving home he became quite short of breath. He was seen in his primary care doctor's office that same day and was felt to have a possible bronchitis or pneumonia, he was given a shot of Avelox and discharged with prescription for antibiotics. He states he did not sleep well that night and upon wakening in the morning again became quite short of breath and for this reason came to the emergency room for further evaluation. Patient states he is quite active, and does a lot of yard work, for the past one month or so, he has to rest every 10 minutes after exerting himself because he becomes quite short of breath, after he rests the symptoms subside and he resumes his activity. He does state that on the drive home from the [place] as well as shortness of breath he was experiencing some discomfort in his chest and upper back region. His EKG on admission here showed a normal sinus rhythm with first-degree AV block, right bundle branch block pattern and left anterior fascicular block. Nonspecific ST-T wave changes noted. Chest x-ray did not reveal any acute cardiopulmonary process. CTA of the chest was performed which was negative for pulmonary embolism, mild dilated dictation of the aortic root noted. White blood cell count normal, hemoglobin 14.4, d-dimer 2.3, potassium 3.7 on admission, 3.1 this morning. BUN 19, creatinine 1.0. Magnesium level I.3 on admission, 1.4 this morning. Troponin 0.28, 0.19, 0.24. BNP level 16,200. Blood pressure on arrival 160/90, temperature on arrival 101.6, blood pressure this morning 165/80, heart rate in the 80s, temperature 99.0. Repeat chest x- ray showed interstitial lung disease. 02/10/2017 Echocardiogram with Doppler study was performed which revealed an ejection fraction of 25-30%. Patient had an episode of confusion through the night last night. He does have some history of dementia for which he takes Aricept. CAT scan of the brain was performed which did not reveal any acute intracranial abnormality. Diuresing well on IV Lasix. Creatinine 1.1, potassium 3.8 magnesium 1.7 02/11/2017 Patient has diuresed well on IV Lasix with a weight loss of approximately 2 kg since yesterday. BUN and creatinine are slightly elevated at 26 and 1.25. Magnesium is 1.5. Patient again had an episode of confusion last night and early this morning likely secondary to underlying dementia. Objective - Vital Signs Vital signs: Vital Signs Temp 97.5 F L 02/11/17 08:00 Pulse 59 L 02/11/17 08:00 Resp 18 02/11/17 08:00 BP 161/70 02/11/17 08:00 Pulse Ox 92 L 02/11/17 08:09 Intake & Output 02/10/17 02/11/17 02/11/17 18:59 06:59 18:59 Intake Total 1031.476 300 Output Total 1575 975 Balance -543.524 -975 300 Weight 72.4 kg Intake: Intake, IV Titration 571.476 Amount Heparin Sodium,Porcine/ 571.476 D5w Pmx 25,000 unit In Dextrose/Water 1 500ml. bag @ 12 UNITS/KG/HR 18.5 mls/hr IV .Q24H [facility] Rx#: [id number] Oral 460 300 Output: Urine 1575 975 Other: Voiding Method Toilet Toilet Toilet Urinal - Exam PHYSICAL EXAMINATION: HEENT: Head is atraumatic, normocephalic. Pupils equal, round. Neck is supple. There is no elevated jugular venous pressure. HEART EXAMINATION: Heart sounds regular, S1 and S2 normal with a systolic murmur. CHEST EXAMINATION: Lungs mejia diminished air entry bilaterally. No chest wall tenderness is noted on palpation or with deep breathing. ABDOMEN: Soft, nontender. Bowel sounds are heard. No organomegaly noted. EXTREMITIES: 2+ peripheral pulses with no evidence of peripheral edema and no calf tenderness noted. NEUROLOGIC patient is awake, alert and oriented x3 with confusion at times. . - Labs CBC & Chem 7: 02/11/17 05:39 02/11/17 05:39 Labs: Abnormal Lab Results - Last 24 Hours (Table) 02/10/17 02/11/17 02/11/17 Range/Units 13:05 05:39 05:39 Plt Count 137 L (150-450) k/uL APTT 63.8 H (22.0-30.0) sec Sodium 135 L (137-145) mmol/L Chloride 92 L (98-107) mmol/L BUN 26 H (9-20) mg/dL Glucose 127 H (74-99) mg/dL Magnesium 1.5 L (1.6-2.3) mg/dL Microbiology - Last 24 Hours (Table) 02/09/17 19:39 Gram Stain - Preliminary Sputum Sputum Culture - Preliminary [place] albicans 02/09/17 20:00 Urine Culture - Final Urine,Voided 02/08/17 12:07 Blood Culture - Preliminary Blood No Growth after 48 hours Assessment and Plan Plan: Assessment and plan #1 symptoms of exertional shortness of breath with associated chest and back discomfort, suggestive of unstable angina. Troponins 0.28, 0.19, 0.24. D- dimer elevated, no evidence of PE on CAT scan according to the patient's daughter, he did undergo cardiac catheterization a number of years ago which revealed 70% lesion in one of his arteries. Medical Therapy advised at that time. #2 possible pneumonia, evidence of temperature of 101 on admission, patient currently on IV antibiotics #3 congestive heart failure, unknown LV function at this time. Patient currently on IV Lasix. #4 hypertension #5 hyperlipidemia #6 hypomagnesemia Cardiology's perspective, we will change the patient to by mouth Lasix. Replace magnesium. From our perspective, patient could likely be discharged home later today and follow-up as an outpatient which time he'll likely be scheduled for an outpatient cardiac catheterization. [employer] note has been reviewed, I agree with a documented findings and plan of care. Patient was seen and examined.
[2017-02-11] MEDS: LEVOFLOXACIN 750MG-D5W PMX 750 MG in DEXTROSE/WATER 1 150ML.BAG IVPB SCH (12:31)
[2017-02-11] MEDS ORDERED: MAGNESIUM SULFATE-D5W PMX 1 GM in DEXTROSE/WATER 1 100ML.BAG IVPB ONE (12:47)
--- NOTE | 2017-02-11 13:03 | P.DS ---
Providers Date of admission: 02/08/17 14:23 Expected date of discharge: 02/11/17 Attending physician: Merry Rose Consults: 02/08/17 14:23 Consult Physician Urgent Consulting Provider: Rachel Sorto Consult Reason/Comments: nstemi Do you want consulting provider notified?: Yes Primary care physician: Lily Nicole [facility] Course: Diagnoses on discharge: 1. Acute systolic heart failure exacerbation: echocardiogram showed EF of 25%. Currently on Lasix 40 IV every 8 hours 2. Systemic inflammatory response syndrome SIRS: Possible secondary to bronchitis. Patient was diagnosed with pneumonia clinically by his PCP that his computed tomography scan of the chest showed clear lungs with no evidence of infiltrate. I recommend finishing 5 days course of Levaquin. Blood culture and urinalysis negative. Sputum culture pending 3. Ischemic cardiomyopathy 4. Acute hypoxic respiratory failure 5. Essential hypertension: Blood pressure not well controlled 6. Mixed hyperlipidemia: LDL at goal. Continue home dose of statins. 7. Coronary artery disease with left heart catheterization several years ago. Patient will need a repeat left heart cath after finishing treatment for suspected bronchitis and his heart failure is better compensated. 8. hypomagnesium and hypokalemia. Patient receiving supplements. 9. Shortness of breath with chest tightness and elevated troponins. Likely suggestive of unstable angina. Case discussed with cardiology. They're recommending heart catheterization when patient's heart failure and bronchitis has improved. Continue the IV heparin. 10. Confusion during the evening may be secondary to patient's dementia as well as hospital delirium. Computed tomography scan of the brain negative. He is currently alert and orientated to 3 Hospital course: This is a 81-year-old gentleman with past medical history noted below significant for essential hypertension and hyperlipidemia who presented to the emergency room with worsening shortness of breath. Patient said that his symptoms started few weeks ago and is being going on and off. He said that he get short of breath with exertion and at times he get up in the middle of the night to open the window to catch his breath. He denies any chest pain. He said that he is fairly active usually and play golf was no difficulty. Yesterday he was more short of breath and he went to his primary care physician where he was evaluated and was diagnosed with pneumonia clinically without a chest x-ray. He was given a prescription for Avelox. Unfortunately patient did not improve and shortness of breath got worse so he decided to come to the emergency room for further evaluation. In the emergency room, chest x-ray showed no acute findings. Patient was noted to be hypoxic. 12-lead EKG showed right bundle branch block. No prior EKGs available for me to compare. Initial troponin was elevated. A 12-lead EKG showed no acute ischemic changes. His BNP was significantly elevated as well. Patient appeared euvolemic clinically. Computed tomography scan of the chest obtained to rule out PE given elevated d-dimer the computed tomography scan showed clear lungs with no consolidation or infiltrate. Study was negative for PE. He also had a temp of 101.5 started on IV Levaquin for possible pneumonia. 02/10/2017 patient is currently on IV Lasix for congestive heart failure exacerbation. EF of 25%. Echo shows moderate pulmonary hypertension and severe global hypokinesis of the LV. Also an EF of 25-30%. Case doesn't discussed with cardiology these are new findings. He is currently on IV heparin. He does report that he had some chest tightness with the shortness of breath. Last night patient had some confusion he wanted to leave the hospital he did not know where he was. A computed tomography scan of the brain was ordered and is negative. Patient is currently awake and alert and orientated to 3 answering questions appropriately. Patient denies any chest pain or shortness of breath. Denies any nausea or vomiting. Reports having bowel movements. Denies any difficulty urinating. Reports that shortness of breaths improvement On 02/11/2017 patient is doing better he is able to ambulate with minimal shortness of breath he was evaluated by cardiology and switched from IV Lasix to oral Lasix. Patient was cleared for discharge he has low magnesium at 1.5 which will be replaced with IV magnesium. He will be discharged home on Lasix 40 mg by mouth twice daily he will also receive Levaquin 500 mg daily for 5 more days. During this admission lisinopril has been discontinued and patient was started on Cozaar 50 mg twice daily, Aldactone 25 mg by mouth daily was added to regimen. Patient also received Xanax 0.25 mg at bedtime as needed per 's request due to frequent awakening at night Patient will follow up with his primary care physician Dr. Nicole in [place] within 1 week Patient Condition at Discharge: Serious Plan - Discharge Summary New Discharge Prescriptions: New Furosemide [Lasix] 40 mg PO BID@0900,1600 tab Levofloxacin [Levaquin] 500 mg PO DAILY #5 tab Losartan [Cozaar] 50 mg PO BID tab Spironolactone [Aldactone] 25 mg PO DAILY tab No Action Nitroglycerin Sl Tabs [Nitrostat] 0.4 mg SUBLINGUAL Q5M PRN PRN Reason: Chest Pain Ibuprofen [Motrin] 200 - 400 mg PO Q6HR PRN PRN Reason: Pain Cyanocobalamin (Vitamin B-12) [Vitamin B-12] 1,000 mcg PO DAILY Ubidecarenone [Co Q-10] 100 mg PO DAILY Omeprazole 20 mg PO DAILY Aspirin EC [Ecotrin Low Dose] 81 mg PO DAILY Potassium Chloride [Klor-Con 20] 20 meq PO DAILY Furosemide [Lasix] 20 mg PO DAILY Fluticasone Nasal [place] [Flonase Nasal [place]] 2 spr EA NOSTRIL DAILY Donepezil HCl [Aricept] 5 mg PO DAILY Lisinopril-Hctz 20-25 mg [Zestoretic 20-25] 1 tab PO DAILY Isosorbide Mononitrate ER [Imdur] 30 mg PO DAILY Tamsulosin HCl [Flomax] 2 cap PO HS Simvastatin [Zocor] 40 mg PO HS Atenolol 100 mg PO HS Moxifloxacin HCl [Avelox] 400 mg PO DAILY Discharge Medication List Aspirin EC [Ecotrin Low Dose] 81 mg PO DAILY 02/08/17 [History] Atenolol 100 mg PO HS 02/08/17 [History] Cyanocobalamin (Vitamin B-12) [Vitamin B-12] 1,000 mcg PO DAILY 02/08/17 [ History] Donepezil HCl [Aricept] 5 mg PO DAILY 02/08/17 [History] Fluticasone Nasal [place] [Flonase Nasal [place]] 2 spr EA NOSTRIL DAILY 02/08/17 [ History] Furosemide [Lasix] 20 mg PO DAILY 02/08/17 [History] Ibuprofen [Motrin] 200 - 400 mg PO Q6HR PRN 02/08/17 [History] Isosorbide Mononitrate ER [Imdur] 30 mg PO DAILY 02/08/17 [History] Lisinopril-Hctz 20-25 mg [Zestoretic 20-25] 1 tab PO DAILY 02/08/17 [History] Moxifloxacin HCl [Avelox] 400 mg PO DAILY 02/08/17 [History] Nitroglycerin Sl Tabs [Nitrostat] 0.4 mg SUBLINGUAL Q5M PRN 02/08/17 [History] Omeprazole 20 mg PO DAILY 02/08/17 [History] Potassium Chloride [Klor-Con 20] 20 meq PO DAILY 02/08/17 [History] Simvastatin [Zocor] 40 mg PO HS 02/08/17 [History] Tamsulosin HCl [Flomax] 2 cap PO HS 02/08/17 [History] Ubidecarenone [Co Q-10] 100 mg PO DAILY 02/08/17 [History] Furosemide [Lasix] 40 mg PO BID@0900,1600 tab 02/11/17 [Rx] Levofloxacin [Levaquin] 500 mg PO DAILY #5 tab 02/11/17 [Rx] Losartan [Cozaar] 50 mg PO BID tab 02/11/17 [Rx] Spironolactone [Aldactone] 25 mg PO DAILY tab 02/11/17 [Rx] Follow up Appointment(s)/Referral(s): Lily Nicole MD [Primary Care Provider] - 1-2 days
[2017-02-11] MEDS ORDERED: MAGNESIUM OXIDE 400 MG TAB PO STA (13:38)
[2017-02-11 13:49] VITALS: BP 120/72; PULSE 65; TEMP 97.7
[2017-02-11] MEDS ORDERED: FUROSEMIDE 40 MG TAB PO SCH (16:00)
== END 2017-02-11 14:37 | DRG 291 ==
LOC: EC 11:10 → 6SEL 14:23
PROVIDERS: ADMIT Internal Medicine; ATTEND Internal Medicine
DX: I11.0 Hypertensive heart disease with heart failure (principal); J96.01 Acute respiratory failure with hypoxia; J84.9 Interstitial pulmonary disease, unspecified; I27.2 Other secondary pulmonary hypertension; E83.42 Hypomagnesemia; I25.5 Ischemic cardiomyopathy; I25.10 Atherosclerotic heart disease of native coronary artery without angina pectoris; F03.90 Unspecified dementia, unspecified severity, without behavioral disturbance, psychotic disturbance, mood disturbance, and anxiety; E78.2 Mixed hyperlipidemia; E87.6 Hypokalemia; I44.0 Atrioventricular block, first degree; I50.23 Acute on chronic systolic (congestive) heart failure; G89.29 Other chronic pain; M54.9 Dorsalgia, unspecified; Z79.82 Long term (current) use of aspirin; Z79.899 Other long term (current) drug therapy; Z87.891 Personal history of nicotine dependence
CPT/HCPCS: 36415; 70450; 71020; 71275; 80048; 80053; 80061; 81003; 82550; 82553; 83605; 83735; 83880; 84132; 84484; 85025; 85379; 85610; 85730; 87040; 87070; 87086; 87205; 93005; 93306; 94644; 94760; 96365; 96366; 96368; 96375; 99291

== ENCOUNTER 2017-03-07 05:53 | Day surgery (SDC) | payer MEDICARE ==
[2017-02-28 09:33] VITALS: BMI 24.3
[2017-03-07] MEDS ORDERED: ASPIRIN 325 MG TAB PO STA (05:59)
[2017-03-07] MEDS ORDERED: ALPRAZolam 0.5 MG TAB PO PRN (05:59)
[2017-03-07] MEDS ORDERED: ATORVASTATIN 80 MG TAB PO STA (05:59)
[2017-03-07] MEDS ORDERED: ALPRAZolam 0.25 MG TAB PO PRN (05:59)
[2017-03-07] MEDS ORDERED: NITROGLYCERIN SL TABS 0.4 MG TAB SUBLINGUAL PRN ×2 (05:59→08:26)
[2017-03-07] MEDS ORDERED: SODIUM CHLORIDE 0.9% 1,000 ML in EMPTY BAG 1 BAG IV ONE (06:00)
[2017-03-07 06:58] LABS: Anion Gap 9 mmol/L; Blood Urea Nitrogen 27 mg/dL (9-20); Calcium 8.9 mg/dL (8.4-10.2); Carbon Dioxide 31 mmol/L (22-30); Chloride 101 mmol/L (98-107); Glucose 126 mg/dL (74-99); Non-African American GFR(MDRD) 59 (>60 ml/min/1.73 sqM); Potassium 3.4 mmol/L (3.5-5.1); Sodium 141 mmol/L (137-145)
[2017-03-07 07:11] VITALS: TEMP 97.7
[2017-03-07] MEDS ORDERED: VERAPAMIL 2.5 MG/ML 2 ML AMP ONE (07:19)
[2017-03-07] MEDS ORDERED: LIDOCAINE 2% INJ 20 MG/ML (20 ML MDV) ONE (07:22)
[2017-03-07] MEDS ORDERED: SODIUM CHLORIDE 0.9% 1,000 ML IV ONE (07:31)
[2017-03-07] MEDS ORDERED: fentaNYL (PF) 50 MCG/ML 2 ML AMP ONE (07:31)
[2017-03-07] MEDS ORDERED: HEPARIN SODIUM 1,000 UN/ML (10ML VL) ONE (07:31)
[2017-03-07] MEDS ORDERED: diphenhydrAMINE 50 MG/ML 1 ML VIAL ONE (07:32)
[2017-03-07] MEDS ORDERED: diphenhydrAMINE 50 MG/ML 1 ML VIAL IVP ONE (07:46)
[2017-03-07] MEDS ORDERED: fentaNYL (PF) 50 MCG/ML 2 ML AMP IV ONE (07:46)
[2017-03-07] MEDS ORDERED: LIDOCAINE 2% INJ 20 MG/ML SQ ONE (07:50)
[2017-03-07] MEDS ORDERED: VERAPAMIL SYRINGE (5 MG/10 ML) INTRAARTER ONE (07:52)
[2017-03-07] MEDS ORDERED: IOHEXOL 350 MG/ML 125ML BOTTLE INJ ONE (08:05)
[2017-03-07] MEDS ORDERED: RX INFO: IV CONTRAST WAS GIVEN 1 EACH MISC MISCELLANE PRN (08:25)
[2017-03-07] MEDS ORDERED: SODIUM CHLORIDE 0.9% 1,000 ML IV SCH (08:30)
[2017-03-07] MEDS ORDERED: DONEPEZIL 5 MG TAB PO SCH (09:00)
[2017-03-07] MEDS ORDERED: NON-FORMULARY DRUG (Cyanocobalamin (Vitamin B-12) [Vitamin B-12] 1,000 MCG) PO SCH (09:00)
[2017-03-07] MEDS ORDERED: FLUTICASONE 50MCG/SPRAY NASAL 16GM EA NOSTRIL SCH (09:00)
[2017-03-07] MEDS ORDERED: NON-FORMULARY DRUG (Omeprazole [Omeprazole] 20 MG) PO SCH (09:00)
[2017-03-07] MEDS ORDERED: ISOSORBIDE MONONITRATE ER 30 MG TAB.ER.24H PO SCH (09:00)
[2017-03-07] MEDS ORDERED: NON-FORMULARY DRUG (Ubidecarenone [Co Q-10] 100 MG) PO SCH (09:00)
[2017-03-07] MEDS ORDERED: LISINOPRIL-HCTZ 20-25 MG 1 EACH TAB PO SCH (09:00)
[2017-03-07] MEDS ORDERED: NON-FORMULARY DRUG (Aspirin Ec 81 MG) PO SCH (09:00)
[2017-03-07 11:44] VITALS: RESP 16
[2017-03-07 13:26] VITALS: BP 116/78; PULSE 52
[2017-03-07] MEDS ORDERED: NON-FORMULARY DRUG (Atenolol [Atenolol] 100 MG) PO SCH (21:00)
[2017-03-07] MEDS ORDERED: TAMSULOSIN 0.4 MG CAP.ER.24H PO SCH (21:00)
[2017-03-07] MEDS ORDERED: ALPRAZolam 0.25 MG TAB PO SCH (21:00)
[2017-03-07] MEDS ORDERED: NON-FORMULARY DRUG (Simvastatin 40 MG) PO SCH (21:00)
--- NOTE | 2017-03-08 09:26 | CC ---
CARDIAC CATHETERIZATION PROCEDURE NOTE Mr. Hale is an 81-year-old male with a known history of coronary artery disease and mild to moderate cardiomyopathy who recently presented with symptoms of congestive heart failure and evidence of severe impairment of left ventricular systolic function. In view of those findings, recommendation was made regarding cardiac catheterization. The procedure as well as risks and the complications were discussed with the patient in full understanding and agreement. PROCEDURE: The patient was brought to the labor relations teacher in fasting semi-sedated state after receiving fentanyl and Benadryl and achieving moderate conscious sedated state. Using Xylocaine anesthesia, in the Seldinger technique, a 6 Afghan sheath was introduced in the right radial artery. Selective right and left coronary angiography performed using 5 Afghan, 3-1/2 bend right Seng and 4 bend left Seng catheter. Multiple views of the coronary artery, including hemiaxial views were obtained. Following that, a 5 Afghan tight pigtail catheter was introduced in the left ventricle and a 30-degree BLACKBURN view of the left ventricle was obtained. Following that, catheter and sheath were removed. Hemostasis was obtained with deployment of a TR band. There were no immediate complications. The patient was returned to his room in stable condition. Of note, the patient received 3500 units of intravenous heparin as well as intra-arterial verapamil. FINDINGS: LEFT MAIN: This is a short size vessel bifurcating to left anterior descending artery and left circumflex. The left main coronary artery is without any evidence of high grade stenosis. LEFT ANTERIOR DESCENDING ARTERY: This a large size vessel, reaching towards the apex with a wrap around apex segment giving rise to a large diagonal branch proximally. The mid LAD has a 30% to 40% plaque. The rest of the vessel has no high grade stenosis. LEFT CIRCUMFLEX: This is a large nondominant vessel giving rise to 2 obtuse marginal branches. The first one is small in caliber, has a 99% stenosis proximally. After the takeoff of the first obtuse marginal branch, there is a 40 % to 50% lesion in mid left circumflex. Beyond that, the second obtuse marginal branch has no evidence of high grade stenosis. RIGHT CORONARY ARTERY: This is a large dominant vessel bifurcating distally in PDA and posterolateral segment and branches. The right coronary artery in mid segment has a intimal disease up to 40%. The rest of the vessel has no high grade stenosis. LEFT VENTRICULOGRAM: Left ventriculogram is performed in 30-degree BLACKBURN view and reveals severe global hypokinesis. Ejection fraction is estimated at 20% to 25%. There was no significant mitral regurgitation. HEMODYNAMICS: There was no gradient across the aortic valve. The left ventricular end-diastolic pressure was 6 to 8 mmHg. CONCLUSION: 1. Mild to moderate triple vessel coronary artery disease. 2. Severely impaired left ventricular systolic function. RECOMMENDATION: In view of finding anatomy, I recommend to continue medical therapy with aggressive coronary risk modifications has been initiated. The etiology of his cardiomyopathy appeared to be nonischemic. Depending on his progress, further recommendations will be made. Those findings and recommendations were discussed with the patient and his family and are in full understanding and agreement. Duration of the procedure is 22 minutes. AAROND
--- NOTE | 2017-03-08 09:34 | MISC ---
March 07, 2017 KARRIE NICOLE MD RE: Hollis Hale Dear Dr. Nicole: I had the opportunity to perform cardiac catheterization on Mr. Hale at [facility] on the 07 of March and a full copy of the procedure note will be forwarded to you. In brief, he was found to have mild to moderate triple vessel coronary artery disease with no significant progression compared with 2012 with a severely impaired left ventricular systolic function consistent with nonischemic cardiomyopathy. Based on those findings, I recommend continuing medical therapy with close follow up of the left ventricular systolic function and depending on his progress further recommendations will be made. I will keep you updated on his progress and thank you again for allowing me the opportunity to participate in his care. Please feel free to call for any questions. Sincerely yours, MD AARON JeffD
== END 2017-03-07 13:47 | disposition home or self-care (01) ==
LOC: CATHCVL 05:53
PROVIDERS: ATTEND Internal Medicine Interventional Cardiology
DX: I25.10 Atherosclerotic heart disease of native coronary artery without angina pectoris (principal); I42.9 Cardiomyopathy, unspecified; I10 Essential (primary) hypertension; Z82.49 Family history of ischemic heart disease and other diseases of the circulatory system; Z87.891 Personal history of nicotine dependence; E78.2 Mixed hyperlipidemia; Z79.899 Other long term (current) drug therapy; Z79.82 Long term (current) use of aspirin
CPT/HCPCS: 93458; 80048; 99152; C1894; C1769; J2001; J1200; J3010; J1644; Q9967

== ENCOUNTER 2018-03-03 13:44 | Emergency (ER) | payer MEDICARE ==
[2018-03-03] MEDS ORDERED: SODIUM CHLORIDE 0.9% 500 ML IV STA (14:24)
--- NOTE | 2018-03-03 14:35 | ED ---
General Adult HPI - General Chief complaint: Weakness Stated complaint: Fall Time Seen by Provider: 03/03/18 14:08 Source: patient, family, RN notes reviewed Mode of arrival: wheelchair Limitations: no limitations - History of Present Illness Initial comments: Complaint and history of present illness this is an 82-year-old male here with his and daughter. Family reports that this morning he was getting out of a chair he felt quite weak had difficulty getting up the time he got up he felt as though his left leg went out from under him. He then fell. Denies any injuries from falling. Patient denies any headache family reports that they helped him up. Soon thereafter was able to ambulate on his own with the assistance of a walker. He again denies any pain from falling. Denies having had any chest pain palpitations and did not complain of feeling dizzy at the time of his fall. Family reports at no time was he disoriented or had any mental changes that they noticed. Patient told the family that he takes 3 Benadryl each morning because of a runny nose. They also state that he is very fatigued each morning. We did discuss the probability of 3 Benadryl causing fatigue. Advised to talk to his family physician about a different medication to control his runny nose. - Related Data Home Medications Medication Instructions Recorded Confirmed Aspirin EC [Ecotrin Low Dose] 81 mg PO DAILY 02/08/17 03/07/17 Atenolol 100 mg PO HS 02/08/17 03/07/17 Cyanocobalamin (Vitamin B-12) 1,000 mcg PO DAILY 02/08/17 03/07/17 [Vitamin B-12] Donepezil HCl [Aricept] 5 mg PO DAILY 02/08/17 02/28/17 Fluticasone Nasal [place] [Flonase 2 spr EA NOSTRIL DAILY 02/08/17 03/07/17 Nasal [place]] Isosorbide Mononitrate ER [Imdur] 30 mg PO DAILY 02/08/17 02/28/17 Lisinopril-Hctz 20-25 mg 1 tab PO DAILY 02/08/17 02/28/17 [Zestoretic 20-25] Nitroglycerin Sl Tabs [Nitrostat] 0.4 mg SUBLINGUAL Q5M PRN 02/08/17 02/28/17 Omeprazole 20 mg PO DAILY 02/08/17 02/28/17 Simvastatin [Zocor] 40 mg PO HS 02/08/17 02/28/17 Tamsulosin HCl [Flomax] 2 cap PO HS 02/08/17 02/28/17 Ubidecarenone [Co Q-10] 100 mg PO DAILY 02/08/17 02/28/17 Previous Rx's Medication Instructions Recorded ALPRAZolam [Xanax] 0.25 mg PO HS #30 tab 02/11/17 Allergies Allergy/AdvReac Type Severity Reaction Status Date / Time No Known Allergies Allergy Verified 03/03/18 13:44 Review of Systems ROS Statement: Those systems with pertinent positive or pertinent negative responses have been documented in the HPI. Review of systems. No headache or visual acuity changes denies any neck pain denies any chest pain shortness breath GI/ problems. No neuro deficits complained of were noted. All systems are reviewed. Past medical problems several days ago the patient was working outside bent over he did stumble forward bruising his left shoulder. Denies it was for any reason other than loss of balance. He has small amount of bruising on the left shoulder but demonstrates full range of motion. Denies any head injury at the time. Past medical problems significant for angina, CHF, GERD, hyperlipidemia and hypertension. He has chronic back pain. The patient's surgeries are back surgery only many years ago. Patient's family history father had lung cancer. Patient denies any ALLERGIES. Quit smoking over 50 years ago. Drinks alcohol very rarely. ROS Other: All systems not noted in ROS Statement are negative. Past Medical History Past Medical History: Chest Pain / Angina, Heart Failure, GERD/Reflux, Hyperlipidemia, Hypertension Additional Past Medical History / Comment(s): chronic back pain due to back surgery. Increasing edema of the lower extremity, pt taking lasix for it. enlarged prostate History of Any Multi-Drug Resistant Organisms: None Reported Past Surgical History: Back Surgery Past Anesthesia/Blood Transfusion Reactions: No Reported Reaction Past Psychological History: Anxiety Smoking Status: Former smoker Past Alcohol Use History: None Reported Past Drug Use History: None Reported - Past Family History Mother History Unknown: Yes Father History Unknown: Yes General Exam - General Exam Comments Initial Comments: General: The patient is awake and alert, in no distress, and does not appear acutely ill. Vital signs shows temperature 97.8 pulse 58 respiratory rate 18 pulse ox 93% room air blood pressure 125/74 Eye: Pupils are equal, round and reactive to light, extra-ocular movements are intact ; there is normal conjunctiva bilaterally. No signs of icterus. Ears, nose, mouth and throat: There are moist mucous membranes and no oral lesions. Neck: The neck is supple, there is no tenderness, no carotid bruit. Cardiovascular: There is a regular rate and rhythm. No murmur, rub or gallop is appreciated. Respiratory: Lungs are clear to auscultation, respirations are non-labored, breath sounds are equal. No wheezes, stridor, rales, or rhonchi. Gastrointestinal: Soft, non-distended, non-tender abdomen without masses or organomegaly noted. There is no rebound or guarding present. No CVA tenderness. Bowel sounds are unremarkable. Back: There is no tenderness to palpation in the midline. There is no obvious deformity. No rashes noted. Musculoskeletal: Normal ROM, no tenderness, There is no pedal edema. There is no calf tenderness or swelling. Sensation intact. Pulses equal bilaterally 2+. Several day old bruising left shoulder as noted in the history. Full range of motion of left arm and shoulder. Neurological: CN II-XII intact, There are no obvious motor or sensory deficits. Coordination appears grossly intact. Speech is normal. No focal or lateralizing findings. Skin: Skin is warm and dry and no rashes or lesions are noted. Psychiatric: Cooperative, appropriate mood & affect, Limitations: no limitations Course Vital Signs 03/03/18 03/03/18 03/03/18 13:44 14:33 16:02 Temperature 97.8 F Pulse Rate 58 L 54 L Pulse Rate [ 55 L Supine] Respiratory 18 16 18 Rate Blood Pressure 125/74 127/65 Blood Pressure 166/87 [Right Arm Sitting] Blood Pressure 147/83 [Right Arm Standing] Blood Pressure 161/77 [Right Arm Supine] O2 Sat by Pulse 93 L 96 96 Oximetry 03/03/18 16:16 Temperature 97.7 F Pulse Rate 65 Pulse Rate [ Supine] Respiratory 16 Rate Blood Pressure 160/83 Blood Pressure [Right Arm Sitting] Blood Pressure [Right Arm Standing] Blood Pressure [Right Arm Supine] O2 Sat by Pulse 96 Oximetry EKG Findings - EKG Comments: EKG Findings:: EKG was done and reviewed at 1358 showing sinus bradycardia rate 58 red bundle branch block and no acute ST elevation no ectopy no ischemic changes. NH interval 248 QRS 138 QT [address] Landon Medical Decision Making - Medical Decision Making Medical decision making; was an 82-year-old male brought in by family because he fell down this morning after standing up to go into the kitchen. He states he felt as though his left leg went out from under him. He did not hit his head and denies any pain from the fall. He was assisted up he was able to use the walker afterwards. Family denies any neuro deficits. Patient's labs show white count 7.4 hemoglobin 13 hematocrit 39 with an INR 1.2. The patient is not on any blood thinners. Potassium 3.9 BUN 27 creatinine 1.2 for the GFR 55. Glucose 137. Urinalysis clean no signs of infection. Neurologic the patient remains intact. Orthostatics; did not show any evidence of hypotension. CT the brain was done and reviewed by radiologist entire report was reviewed and his final impression is; no acute intracranial hemorrhage or midline shift. There is fairly moderate diffuse age-related cerebral atrophy and moderate to severe chronic small vessel ischemic changes redemonstrated. No significant change from prior. As read by Dr. acuna The patient was able to ambulate with the assistance of the nurse. Family reports are comfortable taking him home at this time. Is still advised the patient use a walker for stability as needed and follow with family physician. Obviously told to stop taking as much Benadryl has been taking lately for his runny nose. - Lab Data Result diagrams: 03/03/18 14:10 03/03/18 14:10 Lab Results 03/03/18 03/03/18 03/03/18 Range/Units 14:10 14:10 14:10 WBC 7.4 (3.8-10.6) k/uL RBC 4.07 L (4.30-5.90) m/uL Hgb 13.2 (13.0-17.5) gm/dL Hct 39.3 (39.0-53.0) % MCV 96.8 (80.0-100.0) fL MCH 32.5 (25.0-35.0) pg MCHC 33.6 (31.0-37.0) g/dL RDW 12.3 (11.5-15.5) % Plt Count 113 L (150-450) k/uL Neutrophils % 62 % Lymphocytes % 20 % Monocytes % 9 % Eosinophils % 6 % Basophils % 0 % Neutrophils # 4.6 (1.3-7.7) k/uL Lymphocytes # 1.5 (1.0-4.8) k/uL Monocytes # 0.7 (0-1.0) k/uL Eosinophils # 0.4 (0-0.7) k/uL Basophils # 0.0 (0-0.2) k/uL PT 11.4 (9.0-12.0) sec INR 1.2 H (<1.2) Sodium 139 (137-145) mmol/L Potassium 3.9 (3.5-5.1) mmol/L Chloride 100 (98-107) mmol/L Carbon Dioxide 31 H (22-30) mmol/L Anion Gap 8 mmol/L BUN 27 H (9-20) mg/dL Creatinine 1.24 (0.66-1.25) mg/dL Est GFR (CKD-EPI)AfAm 63 (>60 ml/min/1.73 sqM) Est GFR (CKD-EPI)NonAf 55 (>60 ml/min/1.73 sqM) Glucose 137 H (74-99) mg/dL Calcium 9.1 (8.4-10.2) mg/dL Total Bilirubin 0.7 (0.2-1.3) mg/dL AST 28 (17-59) U/L ALT 23 (21-72) U/L Alkaline Phosphatase 57 (38-126) U/L Troponin I (0.000-0.034) ng/mL Total Protein 6.3 (6.3-8.2) g/dL Albumin 3.6 (3.5-5.0) g/dL Urine Color Urine Appearance (Clear) Urine pH (5.0-8.0) Ur Specific [place] (1.001-1.035) Urine Protein (Negative) Urine Glucose (UA) (Negative) Urine Ketones (Negative) Urine Blood (Negative) Urine Nitrite (Negative) Urine Bilirubin (Negative) Urine Urobilinogen (<2.0) mg/dL Ur Leukocyte Esterase (Negative) 03/03/18 03/03/18 Range/Units 14:10 14:30 WBC (3.8-10.6) k/uL RBC (4.30-5.90) m/uL Hgb (13.0-17.5) gm/dL Hct (39.0-53.0) % MCV (80.0-100.0) fL MCH (25.0-35.0) pg MCHC (31.0-37.0) g/dL RDW (11.5-15.5) % Plt Count (150-450) k/uL Neutrophils % % Lymphocytes % % Monocytes % % Eosinophils % % Basophils % % Neutrophils # (1.3-7.7) k/uL Lymphocytes # (1.0-4.8) k/uL Monocytes # (0-1.0) k/uL Eosinophils # (0-0.7) k/uL Basophils # (0-0.2) k/uL PT (9.0-12.0) sec INR (<1.2) Sodium (137-145) mmol/L Potassium (3.5-5.1) mmol/L Chloride (98-107) mmol/L Carbon Dioxide (22-30) mmol/L Anion Gap mmol/L BUN (9-20) mg/dL Creatinine (0.66-1.25) mg/dL Est GFR (CKD-EPI)AfAm (>60 ml/min/1.73 sqM) Est GFR (CKD-EPI)NonAf (>60 ml/min/1.73 sqM) Glucose (74-99) mg/dL Calcium (8.4-10.2) mg/dL Total Bilirubin (0.2-1.3) mg/dL AST (17-59) U/L ALT (21-72) U/L Alkaline Phosphatase (38-126) U/L Troponin I <0.012 (0.000-0.034) ng/mL Total Protein (6.3-8.2) g/dL Albumin (3.5-5.0) g/dL Urine Color Light Yellow Urine Appearance Clear (Clear) Urine pH 5.0 (5.0-8.0) Ur Specific [place] 1.005 (1.001-1.035) Urine Protein Negative (Negative) Urine Glucose (UA) Negative (Negative) Urine Ketones Negative (Negative) Urine Blood Negative (Negative) Urine Nitrite Negative (Negative) Urine Bilirubin Negative (Negative) Urine Urobilinogen <2.0 (<2.0) mg/dL Ur Leukocyte Esterase Negative (Negative) Disposition Clinical Impression: Weakness Disposition: HOME SELF-CARE Condition: Fair Instructions: Weakness (ED) Additional Instructions: Change positions slowly. Do not take Benadryl. Follow with family physician. Return emergency room as needed. Is patient prescribed a controlled substance at d/c from ED?: No Referrals: Lily Nicole MD [Primary Care Provider] - 1-2 days Time of Disposition: 16:26
[2018-03-03 14:39] LABS: Basophils % (A) 0 %; Eosinophils # (A) 0.4 k/uL (0-0.7); Eosinophils % (A) 6 %; HCT 39.3 % (39.0-53.0); HGB 13.2 gm/dL (13.0-17.5); Lymphocytes # (A) 1.5 k/uL (1.0-4.8); Lymphocytes % (A) 20 %; MCH 32.5 pg (25.0-35.0); MCHC 33.6 g/dL (31.0-37.0); MCV 96.8 fL (80.0-100.0); Mean Platelet Volume 11.5; Monocytes # (A) 0.7 k/uL (0-1.0); Monocytes % (A) 9 %; Neutrophils # (A) 4.6 k/uL (1.3-7.7); Neutrophils % (A) 62 %; Platelet Count 113 k/uL (150-450); RBC 4.07 m/uL (4.30-5.90); RDW 12.3 % (11.5-15.5); WBC 7.4 k/uL (3.8-10.6)
[2018-03-03 14:45] LABS: Appearance,Urine Clear (Clear); Bilirubin,Urine Negative (Negative); Blood,Urine Negative (Negative); Color,Urine Light Yellow; Glucose,Urine (UA) Negative (Negative); Ketones,Urine Negative (Negative); Leukocyte Esterase,Urine Negative (Negative); Nitrite,Urine Negative (Negative); Protein,Urine Negative (Negative); Specific Gravity,Urine 1.005 (1.001-1.035); Urobilinogen,Urine <2.0 mg/dL (<2.0)
[2018-03-03 14:47] LABS: INR 1.2 (<1.2); Prothrombin Time 11.4 sec (9.0-12.0)
[2018-03-03 14:55] LABS: Albumin 3.6 g/dL (3.5-5.0); Calcium 9.1 mg/dL (8.4-10.2); Potassium 3.9 mmol/L (3.5-5.1); Total Bilirubin 0.7 mg/dL (0.2-1.3); Total Protein 6.3 g/dL (6.3-8.2)
--- NOTE | 2018-03-03 15:45 | CT ---
EXAMINATION TYPE: CT brain wo con DATE OF EXAM: 03/03/2018 HISTORY: Leg weakness and falls. CT DLP: 738.2 mGycm. Automated Exposure Control for Dose Reduction was Utilized. TECHNIQUE: CT scan of the head is performed without contrast. COMPARISON: CT brain February 09, 2017 FINDINGS: There is no acute intracranial hemorrhage or midline shift identified. There is diffuse v entricular and sulcal prominence consistent with diffuse age-related cerebral atrophy. There is low- attenuation in the periventricular white matter consistent with chronic small vessel ischemic change. High dense or calcified lenses are felt present bilaterally. Minimal mucosal thickening in the visua lized left maxillary sinus is noted. IMPRESSION: No acute intracranial hemorrhage or midline shift. There is fairly moderate diffuse age -related cerebral atrophy and moderate to severe chronic small vessel ischemic change redemonstrated. No significant change from prior.
[2018-03-03 16:17] VITALS: BP 160/83; PULSE 65; RESP 16; TEMP 97.7
== END 2018-03-03 16:42 | disposition home or self-care (01) ==
LOC: EC 13:44
DX: R53.1 Weakness (principal); R09.89 Other specified symptoms and signs involving the circulatory and respiratory systems; I11.0 Hypertensive heart disease with heart failure; I50.9 Heart failure, unspecified; E78.5 Hyperlipidemia, unspecified; K21.9 Gastro-esophageal reflux disease without esophagitis; F41.9 Anxiety disorder, unspecified; Z87.891 Personal history of nicotine dependence; Z79.82 Long term (current) use of aspirin; Z79.899 Other long term (current) drug therapy
CPT/HCPCS: 36415; 70450; 80053; 81003; 84484; 85025; 85610; 93005; 99285